=== PATIENT | male | born 1940 | race Caucasian/White ===

== ENCOUNTER 2019-01-12 10:36 | Inpatient (IN) | payer MEDICARE, MEDICAID ==
[~2019-01-12] VITALS: Ht 165.1 cm; Wt 78.5 kg
[2019-01-12] MEDS ORDERED: FUROSEMIDE 20MG/2ML VIAL IVP ONE (11:00)
[2019-01-12] MEDS ORDERED: LEVOFLOXACIN 500MG PREMIX 100 ML IV ONE (11:45)
[2019-01-12 12:20] LABS: BASOPHILS % 0.2 % (0.0-2.0); HEMATOCRIT. 34.1 % (42.0-52.0); HEMOGLOBIN. 9.8 g/dL (14.0-18.0); LYMPHOCYTES % 13.9 % (20.0-50.0); MEAN CORPUSCULAR HEMOGLOBIN 17.6 pg (28.0-32.0); MEAN CORPUSCULAR VOLUME 61.4 fL (80.0-94.0); MEAN PLATELET VOLUME 8.9 fl (7.4-10.4); MONOCYTES % 9.5 % (2.0-8.0); NEUTROPHILS % 76.4 % (40.0-76.0); PLATELET 208 x1000/uL (130-400); RED BLOOD CELL COUNT 5.55 mill/uL (4.7-6.1); RED CELL DISTRIBUTION WIDTH 25.2 % (11.6-14.6)
[2019-01-12 12:26] LABS: CHLORIDE 97 mEq/L (98-107)
[2019-01-12 13:11] LABS: PLATELET ESTIMATE NORMAL
[2019-01-12 16:00] VITALS: BP 117/71
[2019-01-12] MEDS ORDERED: GUAIFENESIN 200MG/10ML SUGAR FREE UDC PO PRN (17:00)
[2019-01-12] MEDS ORDERED: MORPHINE SULFATE 2 MG/ML CPJ (NOT FOR IM USE) IV PRN (17:00)
[2019-01-12] MEDS ORDERED: IPRATROPIUM/ALBUTEROL 0.5-3(2.5)MG/3ML NEB INH PRN (17:00)
[2019-01-12] MEDS ORDERED: DOCUSATE SODIUM 100MG CAPSULE PO PRN (17:00)
[2019-01-12] MEDS ORDERED: CLONIDINE 0.1MG TABLET PO PRN (17:00)
[2019-01-12] MEDS ORDERED: HYDROCODONE/ACETAMINOPHEN 5/325MG TABLET PO PRN (17:00)
[2019-01-12] MEDS ORDERED: ACETAMINOPHEN 325MG TABLET PO PRN (17:00)
[2019-01-12] MEDS ORDERED: ONDANSETRON HCL 4MG/2ML INJ IV PRN (17:00)
[2019-01-12] MEDS: LISINOPRIL 10MG TABLET PO SCH (17:30)
[2019-01-12] MEDS ORDERED: ENOXAPARIN 40MG/0.4ML SYR SUBCUT SCH (18:00)
[2019-01-12] MEDS ORDERED: CEFTRIAXONE 1 G PREMIX 50 ML IV SCH (18:00)
[2019-01-12] MEDS ORDERED: SODIUM POLYSTYRENE SULFONATE 15 G/60 ML BOT PO NR (19:00)
[2019-01-12] MEDS ORDERED: AZITHROMYCIN 500 MG in DEXT 5% WATER 250 ML IV SCH (19:00)
[2019-01-12 20:00] VITALS: BP 123/63
[2019-01-12] MEDS: CEFTRIAXONE 1 G PREMIX 50 ML IV SCH (21:45)
[2019-01-12] MEDS: METOPROLOL TARTRATE 25MG TABLET PO SCH (21:45)
[2019-01-12] MEDS: AZITHROMYCIN 500 MG in DEXT 5% WATER 250 ML IV SCH (22:34)
[2019-01-13] VITALS: BP 120/65
[2019-01-13 04:00] VITALS: BP 115/62
[2019-01-13 07:09] LABS: HEMATOCRIT. 33.1 % (42.0-52.0); HEMOGLOBIN. 9.3 g/dL (14.0-18.0); MEAN CORPUSCULAR HEMOGLOBIN 17.5 pg (28.0-32.0); MEAN CORPUSCULAR VOLUME 62.4 fL (80.0-94.0); RED BLOOD CELL COUNT 5.31 mill/uL (4.7-6.1); RED CELL DISTRIBUTION WIDTH 24.7 % (11.6-14.6)
[2019-01-13 07:49] LABS: CHLORIDE 98 mEq/L (98-107)
[2019-01-13 08:00] VITALS: BP 125/62
[2019-01-13 08:01] LABS: LDL CHOLESTEROL 78 mg/dL (5-100)
[2019-01-13 08:02] LABS: CREATINE KINASE 70 IU/L (39-308); HDL CHOLESTEROL 17 mg/dL (40-59)
[2019-01-13 08:05] LABS: CREATINE KINASE MB FRACTION 7.5 ng/mL (0.5-3.6)
[2019-01-13] MEDS: LISINOPRIL 10MG TABLET PO SCH (08:58)
[2019-01-13] MEDS: METOPROLOL TARTRATE 25MG TABLET PO SCH ×2 (08:58→22:01)
[2019-01-13] MEDS ORDERED: FUROSEMIDE 40MG/4ML VIAL IV SCH (09:00)
[2019-01-13 09:15] LABS: PLATELET 97 x1000/uL (130-400)
[2019-01-13 09:18] LABS: NUCLEATED RED BLOOD CELLS 6 /100 WBC; PLATELET ESTIMATE SLIGHTLY DECREASED
[2019-01-13 12:00] VITALS: BP 87/42
[2019-01-13] MEDS: LOSARTAN POTASSIUM 25 MG TABLET PO SCH (13:00)
[2019-01-13 15:36] LABS: *AMPHETAMINES SCREEN URINE NEGATIVE (NEGATIVE); *BARBITURATES SCREEN URINE NEGATIVE (NEGATIVE)
[2019-01-13 15:37] LABS: *BENZODIAZEPINES SCREEN URINE NEGATIVE (NEGATIVE); *COCAINE SCREEN URINE NEGATIVE (NEGATIVE); CANNABINOID URINE SCREEN NEGATIVE (NEGATIVE); METHADONE URINE SCREEN NEGATIVE (NEGATIVE); OPIATES URINE SCREEN NEGATIVE (NEGATIVE); PHENCYCLIDINE URINE SCREEN NEGATIVE (NEGATIVE)
[2019-01-13 16:00] VITALS: BP 88/46
[2019-01-13] MEDS: FUROSEMIDE 40MG/4ML VIAL IV SCH (18:15)
[2019-01-13 20:00] VITALS: BP 112/63
[2019-01-13] MEDS: CEFTRIAXONE 1 G PREMIX 50 ML IV SCH (20:00)
[2019-01-13] MEDS: AZITHROMYCIN 500 MG in DEXT 5% WATER 250 ML IV SCH (23:17)
[2019-01-14] VITALS: BP 113/58
[2019-01-14 04:00] VITALS: BP 116/50
[2019-01-14 07:33] LABS: CHLORIDE 95 mEq/L (98-107)
[2019-01-14 07:42] LABS: LDL CHOLESTEROL 73 mg/dL (5-100)
[2019-01-14 07:46] LABS: CREATINE KINASE MB FRACTION 4.2 ng/mL (0.5-3.6); HDL CHOLESTEROL 13 mg/dL (40-59)
[2019-01-14 07:47] LABS: BASOPHILS % 0.2 % (0.0-2.0); EOSINOPHILS % 0.3 % (0.0-5.0); HEMATOCRIT. 32.1 % (42.0-52.0); HEMOGLOBIN. 9.1 g/dL (14.0-18.0); LYMPHOCYTES % 17.2 % (20.0-50.0); MEAN CORPUSCULAR HEMOGLOBIN 17.2 pg (28.0-32.0); MEAN CORPUSCULAR VOLUME 60.6 fL (80.0-94.0); MEAN PLATELET VOLUME 9.7 fl (7.4-10.4); MONOCYTES % 11.2 % (2.0-8.0); NEUTROPHILS % 71.1 % (40.0-76.0); PLATELET 174 x1000/uL (130-400); RED BLOOD CELL COUNT 5.29 mill/uL (4.7-6.1); RED CELL DISTRIBUTION WIDTH 24.8 % (11.6-14.6)
[2019-01-14 08:00] VITALS: BP 108/63
[2019-01-14 08:01] LABS: CREATINE KINASE 43 IU/L (39-308)
[2019-01-14] MEDS: LOSARTAN POTASSIUM 25 MG TABLET PO SCH (08:56)
[2019-01-14] MEDS: METOPROLOL TARTRATE 25MG TABLET PO SCH ×2 (08:56→21:00)
[2019-01-14] MEDS: FUROSEMIDE 40MG/4ML VIAL IV SCH ×2 (11:24→17:34)
[2019-01-14 12:00] VITALS: BP 103/50
[2019-01-14 16:00] VITALS: BP 111/33
[2019-01-14] MEDS: SPIRONOLACTONE 25MG TABLET PO SCH (17:35)
[2019-01-14] MEDS: CEFEPIME 1,000 MG in DEXTROSE 5% WATER 50 ML IV SCH (17:36)
[2019-01-14] MEDS: METRONIDAZOLE 500 MG PREMIX 100 ML IV SCH (18:16)
[2019-01-14 20:00] VITALS: BP 102/56
[2019-01-14 20:11] LABS: HEPATITIS B SURFACE ANTIGEN NEGATIVE
[2019-01-14 20:41] LABS: HEPATITIS A AB IGM NEGATIVE (NEGATIVE)
[2019-01-14] MEDS ORDERED: LACTULOSE 20G/30ML UDC PO SCH (21:00)
[2019-01-14] MEDS: LACTULOSE 20G/30ML UDC PO SCH (21:59)
[2019-01-15] VITALS: BP 123/49
[2019-01-15] MEDS: METRONIDAZOLE 500 MG PREMIX 100 ML IV SCH ×4 (01:25→23:55)
[2019-01-15] MEDS: CEFEPIME 1,000 MG in DEXTROSE 5% WATER 50 ML IV SCH ×2 (03:30→14:30)
[2019-01-15 04:00] VITALS: BP 113/59
[2019-01-15] MEDS: LACTULOSE 20G/30ML UDC PO SCH ×3 (05:29→21:45)
[2019-01-15 07:10] LABS: BASOPHILS % 0.2 % (0.0-2.0); EOSINOPHILS % 0.6 % (0.0-5.0); HEMATOCRIT. 30.8 % (42.0-52.0); HEMOGLOBIN. 9.2 g/dL (14.0-18.0); LYMPHOCYTES % 14.7 % (20.0-50.0); MEAN CORPUSCULAR HEMOGLOBIN 17.8 pg (28.0-32.0); MEAN CORPUSCULAR VOLUME 59.7 fL (80.0-94.0); MEAN PLATELET VOLUME 9.6 fl (7.4-10.4); MONOCYTES % 14.1 % (2.0-8.0); NEUTROPHILS % 70.4 % (40.0-76.0); PLATELET 172 x1000/uL (130-400); RED BLOOD CELL COUNT 5.17 mill/uL (4.7-6.1); RED CELL DISTRIBUTION WIDTH 24.7 % (11.6-14.6)
[2019-01-15 07:13] LABS: CHLORIDE 93 mEq/L (98-107)
[2019-01-15 08:00] VITALS: BP 104/45
[2019-01-15] MEDS: SPIRONOLACTONE 25MG TABLET PO SCH (08:57)
[2019-01-15] MEDS: FUROSEMIDE 40MG/4ML VIAL IV SCH ×2 (08:57→17:25)
[2019-01-15] MEDS: METOPROLOL TARTRATE 25MG TABLET PO SCH ×2 (08:58→21:46)
[2019-01-15] MEDS: LOSARTAN POTASSIUM 25 MG TABLET PO SCH (08:58)
[2019-01-15 12:00] VITALS: BP 116/50
[2019-01-15] MEDS ORDERED: VANCOMYCIN 1250MG in DEXTROSE 5% WATER 250ML IV SCH (12:00)
[2019-01-15 13:01] LABS: BG BASE EXCESS 17.3 mmol/L (-2.0-2.0); BG CARBOXYHEMOGLOBIN 0.7 % (0.5-1.5); BG DEOXYHEMOGLOBIN 23.1 % (0.0-5.0); BG FRACTION INSPIRED OXYGEN 21; BG HCO3 ACT 43.9 mmol/L (22.0-26.0); BG METHEMOGLOBIN 0.3 % (0.0-1.5); BG OXYGEN SATURATION 76.7 % (92.0-98.5); BG OXYHEMOGLOBIN 75.9 % (94.0-97.0); BG PH 7.441 (7.350-7.450); BG PO2 44.4 mmHg (75.0-100.0); BG SAMPLE SITE RIGHT RADIAL; BG TOTAL HEMOGLOBIN 9.6 g/dL (12.0-18.0); BG VENT MODE ROOM AIR
[2019-01-15 16:00] VITALS: BP 151/42
[2019-01-15 20:00] VITALS: BP 128/66
[2019-01-16] VITALS: BP 109/59
[2019-01-16] MEDS: CEFEPIME 1,000 MG in DEXTROSE 5% WATER 50 ML IV SCH ×2 (03:43→17:16)
[2019-01-16 04:00] VITALS: BP 98/55
[2019-01-16] MEDS: LACTULOSE 20G/30ML UDC PO SCH ×3 (05:56→21:08)
[2019-01-16 07:40] LABS: BASOPHILS % 0.2 % (0.0-2.0); EOSINOPHILS % 2.8 % (0.0-5.0); HEMATOCRIT. 28.8 % (42.0-52.0); HEMOGLOBIN. 8.5 g/dL (14.0-18.0); LYMPHOCYTES % 14.5 % (20.0-50.0); MEAN CORPUSCULAR HEMOGLOBIN 17.5 pg (28.0-32.0); MEAN CORPUSCULAR VOLUME 59.4 fL (80.0-94.0); MEAN PLATELET VOLUME 8.6 fl (7.4-10.4); MONOCYTES % 13.9 % (2.0-8.0); NEUTROPHILS % 68.6 % (40.0-76.0); PLATELET 128 x1000/uL (130-400); RED BLOOD CELL COUNT 4.86 mill/uL (4.7-6.1); RED CELL DISTRIBUTION WIDTH 24.5 % (11.6-14.6)
[2019-01-16 07:45] LABS: CHLORIDE 92 mEq/L (98-107)
[2019-01-16] MEDS: METRONIDAZOLE 500 MG PREMIX 100 ML IV SCH ×2 (08:05→18:26)
[2019-01-16 08:11] VITALS: BP 98/56
[2019-01-16] MEDS: METOPROLOL TARTRATE 25MG TABLET PO SCH (08:56)
[2019-01-16] MEDS: LOSARTAN POTASSIUM 25 MG TABLET PO SCH (08:56)
[2019-01-16] MEDS: SPIRONOLACTONE 25MG TABLET PO SCH (08:57)
[2019-01-16] MEDS: FUROSEMIDE 40MG/4ML VIAL IV SCH ×2 (08:57→17:16)
[2019-01-16 12:16] VITALS: BP 122/62
[2019-01-16] MEDS: IPRATROPIUM/ALBUTEROL 0.5-3(2.5)MG/3ML NEB HHN SCH ×2 (12:23→16:22)
[2019-01-16] MEDS ORDERED: POTASSIUM CHLORIDE 20MEQ TABLET SR PO NR (13:45)
[2019-01-16] MEDS: CARVEDILOL 3.125 MG TABLET PO SCH ×2 (14:36→21:09)
[2019-01-16 15:18] LABS: BG BASE EXCESS 19.6 mmol/L (-2.0-2.0); BG CARBOXYHEMOGLOBIN 1.6 % (0.5-1.5); BG DEOXYHEMOGLOBIN 5.6 % (0.0-5.0); BG FRACTION INSPIRED OXYGEN 32; BG HCO3 ACT 46.7 mmol/L (22.0-26.0); BG METHEMOGLOBIN 0.4 % (0.0-1.5); BG OXYGEN SATURATION 94.3 % (92.0-98.5); BG OXYHEMOGLOBIN 92.4 % (94.0-97.0); BG PCO2 72.1 mmHg (35.0-45.0); BG PH 7.429 (7.350-7.450); BG PO2 73.1 mmHg (75.0-100.0); BG SAMPLE SITE LEFT BRACHIAL; BG TOTAL HEMOGLOBIN 9.2 g/dL (12.0-18.0); BG VENT MODE NASAL CANNULA
[2019-01-16 16:00] VITALS: BP 121/70
[2019-01-16 20:00] VITALS: BP 105/60
[2019-01-17] VITALS (49 sets, daily range): BP systolic 65–131; BP diastolic 24–91
[2019-01-17] MEDS: METRONIDAZOLE 500 MG PREMIX 100 ML IV SCH ×3 (00:15→16:47)
[2019-01-17] MEDS: CEFEPIME 1,000 MG in DEXTROSE 5% WATER 50 ML IV SCH ×2 (03:53→16:40)
[2019-01-17] MEDS: IPRATROPIUM/ALBUTEROL 0.5-3(2.5)MG/3ML NEB HHN SCH ×5 (04:26→20:12)
[2019-01-17] MEDS: LACTULOSE 20G/30ML UDC PO SCH ×3 (05:23→22:19)
[2019-01-17 06:31] LABS: CHLORIDE 95 mEq/L (98-107)
[2019-01-17 06:34] LABS: BASOPHILS % 0.2 % (0.0-2.0); EOSINOPHILS % 5.3 % (0.0-5.0); HEMATOCRIT. 28.7 % (42.0-52.0); HEMOGLOBIN. 8.4 g/dL (14.0-18.0); LYMPHOCYTES % 12.4 % (20.0-50.0); MEAN CORPUSCULAR HEMOGLOBIN 17.6 pg (28.0-32.0); MEAN CORPUSCULAR VOLUME 60.4 fL (80.0-94.0); MEAN PLATELET VOLUME 8.8 fl (7.4-10.4); NEUTROPHILS % 70.1 % (40.0-76.0); PLATELET 121 x1000/uL (130-400); RED BLOOD CELL COUNT 4.75 mill/uL (4.7-6.1); RED CELL DISTRIBUTION WIDTH 24.8 % (11.6-14.6)
[2019-01-17] MEDS: FUROSEMIDE 40MG/4ML VIAL IV SCH ×2 (08:14→16:47)
[2019-01-17] MEDS: LOSARTAN POTASSIUM 25 MG TABLET PO SCH (08:15)
[2019-01-17 08:36] LABS: BG BASE EXCESS 9.7 mmol/L (-2.0-2.0); BG CARBOXYHEMOGLOBIN 0.3 % (0.5-1.5); BG DEOXYHEMOGLOBIN 0.8 % (0.0-5.0); BG FRACTION INSPIRED OXYGEN 100; BG HCO3 ACT 36.4 mmol/L (22.0-26.0); BG METHEMOGLOBIN 0.9 % (0.0-1.5); BG OXYGEN SATURATION 99.2 % (92.0-98.5); BG PCO2 62.3 mmHg (35.0-45.0); BG PH 7.384 (7.350-7.450); BG PO2 311.9 mmHg (75.0-100.0); BG SAMPLE SITE LEFT BRACHIAL; BG TOTAL HEMOGLOBIN 9.8 g/dL (12.0-18.0); BG VENT MODE MASK - NRB
[2019-01-17] MEDS: SPIRONOLACTONE 25MG TABLET PO SCH (08:58)
[2019-01-17] MEDS: CARVEDILOL 3.125 MG TABLET PO SCH ×2 (08:58→20:41)
[2019-01-17] MEDS ORDERED: LORAZEPAM 2MG/ML CPJ IV PRN (10:15)
[2019-01-17] MEDS: FOLIC ACID 1MG TABLET PO SCH (11:16)
[2019-01-17] MEDS: MULTIVITAMINS,THER W-MINERALS TABLET PO SCH (11:16)
[2019-01-17] MEDS: THIAMINE HCL 100MG TABLET PO SCH (11:16)
[2019-01-17] MEDS ORDERED: LEVETIRACETAM 500 MG in SODIUM CHLORIDE 0.9% 100 ML IV SCH (19:00)
[2019-01-18] VITALS (62 sets, daily range): BP systolic 86–127; BP diastolic 48–74
[2019-01-18] MEDS: IPRATROPIUM/ALBUTEROL 0.5-3(2.5)MG/3ML NEB HHN SCH ×6 (00:30→22:00)
[2019-01-18] MEDS: METRONIDAZOLE 500 MG PREMIX 100 ML IV SCH ×3 (01:41→18:01)
[2019-01-18] MEDS: CEFEPIME 1,000 MG in DEXTROSE 5% WATER 50 ML IV SCH ×2 (03:37→15:21)
[2019-01-18 04:33] LABS: BASOPHILS % 0.3 % (0.0-2.0); EOSINOPHILS % 2.5 % (0.0-5.0); HEMATOCRIT. 27.8 % (42.0-52.0); HEMOGLOBIN. 8.1 g/dL (14.0-18.0); LYMPHOCYTES % 10.5 % (20.0-50.0); MEAN CORPUSCULAR HEMOGLOBIN 17.6 pg (28.0-32.0); MEAN CORPUSCULAR VOLUME 60.2 fL (80.0-94.0); MONOCYTES % 10.4 % (2.0-8.0); NEUTROPHILS % 76.3 % (40.0-76.0); RED BLOOD CELL COUNT 4.61 mill/uL (4.7-6.1); RED CELL DISTRIBUTION WIDTH 25.1 % (11.6-14.6)
[2019-01-18 04:38] LABS: CHLORIDE 91 mEq/L (98-107)
[2019-01-18] MEDS: LACTULOSE 20G/30ML UDC PO SCH ×3 (05:37→21:11)
[2019-01-18] MEDS: LEVETIRACETAM 500 MG in SODIUM CHLORIDE 0.9% 100 ML IV SCH ×2 (08:28→21:10)
[2019-01-18] MEDS: LOSARTAN POTASSIUM 25 MG TABLET PO SCH (09:00)
[2019-01-18] MEDS: CARVEDILOL 3.125 MG TABLET PO SCH ×2 (09:00→21:00)
[2019-01-18] MEDS ORDERED: MAGNESIUM 1 G PREMIX 100 ML IV ONE (09:00)
[2019-01-18] MEDS: MULTIVITAMINS,THER W-MINERALS TABLET PO SCH (09:47)
[2019-01-18] MEDS: SPIRONOLACTONE 25MG TABLET PO SCH (09:47)
[2019-01-18] MEDS: THIAMINE HCL 100MG TABLET PO SCH (09:48)
[2019-01-18] MEDS: FOLIC ACID 1MG TABLET PO SCH (09:48)
[2019-01-18] MEDS: FUROSEMIDE 40MG/4ML VIAL IV SCH ×2 (09:49→18:13)
[2019-01-18 13:49] LABS: PLATELET 109 x1000/uL (130-400)
[2019-01-19] VITALS: BP 99/47
[2019-01-19] MEDS: CEFEPIME 1,000 MG in DEXTROSE 5% WATER 50 ML IV SCH (03:30)
[2019-01-19] MEDS: LACTULOSE 20G/30ML UDC PO SCH (06:27)
[2019-01-19] MEDS: METRONIDAZOLE 500 MG PREMIX 100 ML IV SCH ×2 (08:00)
[2019-01-19 08:10] VITALS: BP 106/60
[2019-01-19] MEDS: IPRATROPIUM/ALBUTEROL 0.5-3(2.5)MG/3ML NEB HHN SCH (08:30)
[2019-01-19] MEDS: LEVETIRACETAM 500 MG in SODIUM CHLORIDE 0.9% 100 ML IV SCH (09:00)
[2019-01-19] MEDS: MULTIVITAMINS,THER W-MINERALS TABLET PO SCH (09:00)
[2019-01-19] MEDS: SPIRONOLACTONE 25MG TABLET PO SCH (09:00)
[2019-01-19] MEDS: FOLIC ACID 1MG TABLET PO SCH (09:00)
[2019-01-19] MEDS: THIAMINE HCL 100MG TABLET PO SCH (09:00)
[2019-01-19] MEDS: FUROSEMIDE 40MG/4ML VIAL IV SCH (09:00)
[2019-01-19] MEDS: LOSARTAN POTASSIUM 25 MG TABLET PO SCH (09:00)
[2019-01-19] MEDS: CARVEDILOL 3.125 MG TABLET PO SCH (09:00)
[2019-01-19 11:39] VITALS: BP 115/65
[2019-01-19 11:49] VITALS: BP 115/65
== END 2019-01-19 13:18 | disposition home health service (06) | DRG 720 ==
LOC: ER 10:39 → 5WST 12:52 → EDBEDREQ 12:55 → EDBEDREQTM 12:55 → ENRESERV 14:54 → MICUNO 01-17 08:34 → 5WST 01-18 17:09
PROVIDERS: ADMIT Hospitalist; ATTEND Hospitalist
PROC: 5A09357 Assistance with Respiratory Ventilation, Less than 24 Consecutive Hours, Continuous Positive Airway Pressure (ICD-10-PCS; principal; 2019-01-15)
PROC: 5A09357 Assistance with Respiratory Ventilation, Less than 24 Consecutive Hours, Continuous Positive Airway Pressure (ICD-10-PCS; 2019-01-16)
PROC: 5A09357 Assistance with Respiratory Ventilation, Less than 24 Consecutive Hours, Continuous Positive Airway Pressure (ICD-10-PCS; 2019-01-17)
DX: A41.9 Sepsis, unspecified organism (principal); J69.0 Pneumonitis due to inhalation of food and vomit; J96.02 Acute respiratory failure with hypercapnia; E43 Unspecified severe protein-calorie malnutrition; I50.43 Acute on chronic combined systolic (congestive) and diastolic (congestive) heart failure; N17.9 Acute kidney failure, unspecified; D69.6 Thrombocytopenia, unspecified; E11.22 Type 2 diabetes mellitus with diabetic chronic kidney disease; K72.90 Hepatic failure, unspecified without coma; E87.5 Hyperkalemia; E87.1 Hypo-osmolality and hyponatremia; D64.9 Anemia, unspecified; R74.0 Nonspecific elevation of levels of transaminase and lactic acid dehydrogenase [LDH]; L97.919 Non-pressure chronic ulcer of unspecified part of right lower leg with unspecified severity; R26.9 Unspecified abnormalities of gait and mobility; E66.9 Obesity, unspecified; K74.60 Unspecified cirrhosis of liver; I13.0 Hypertensive heart and chronic kidney disease with heart failure and stage 1 through stage 4 chronic kidney disease, or unspecified chronic kidney disease; N18.9 Chronic kidney disease, unspecified; I42.6 Alcoholic cardiomyopathy; G93.89 Other specified disorders of brain; I25.10 Atherosclerotic heart disease of native coronary artery without angina pectoris; I27.29 Other secondary pulmonary hypertension; I87.2 Venous insufficiency (chronic) (peripheral); R56.9 Unspecified convulsions; E80.6 Other disorders of bilirubin metabolism; Z78.1 Physical restraint status; Z68.28 Body mass index [BMI] 28.0-28.9, adult
CPT/HCPCS: 36415; 36600; 70551; 71045; 71250; 74176; 80061; 80305; 82140; 82375; 82550; 82553; 82693; 82805; 82962; 83735; 83880; 84132; 84484; 85379; 86705; 86709; 86803; 87340; 92610; 93005; 93306; 93970; 94640; 94660; 97116; 97162; 97166; 97168; 97530; 97535; 99285; A6261; C1893; J0456; J0692; J0696; J1650; J1940; J1953; J1956; J2060; J3370; J3475; J3490; J7040; J7050; J7060; J7620; A4315

== ENCOUNTER 2019-01-25 00:15 | Inpatient (IN) | payer MEDICARE, MEDICAID ==
[~2019-01-25] VITALS: Ht 167.6 cm; Wt 88.6 kg
[2019-01-25] MEDS ORDERED: SODIUM CHLORIDE 0.9% 1,000 ML IV ONE (00:53)
[2019-01-25 01:38] LABS: HEMATOCRIT. 27.5 % (42.0-52.0); HEMOGLOBIN. 8.1 g/dL (14.0-18.0); MEAN CORPUSCULAR HEMOGLOBIN 17.8 pg (28.0-32.0); MEAN CORPUSCULAR VOLUME 60.3 fL (80.0-94.0); MEAN PLATELET VOLUME 8.8 fl (7.4-10.4); PLATELET 160 x1000/uL (130-400); RED BLOOD CELL COUNT 4.55 mill/uL (4.7-6.1); RED CELL DISTRIBUTION WIDTH 26.5 % (11.6-14.6)
[2019-01-25 01:45] LABS: CHLORIDE 90 mEq/L (98-107)
[2019-01-25] MEDS ORDERED: ASPIRIN 325MG EC TABLET PO NR (02:30)
[2019-01-25 03:27] LABS: PLATELET ESTIMATE NORMAL
[2019-01-25 08:40] VITALS: BP 99/52
[2019-01-25] MEDS ORDERED: ACETAMINOPHEN 325MG TABLET PO PRN (09:15)
[2019-01-25] MEDS ORDERED: DIPHENHYDRAMINE 50MG/ML VIAL IV PRN (09:15)
[2019-01-25] MEDS ORDERED: HYDROCODONE/ACETAMINOPHEN 5/325MG TABLET PO PRN (09:15)
[2019-01-25] MEDS ORDERED: CLONIDINE 0.1MG TABLET PO PRN (09:15)
[2019-01-25] MEDS ORDERED: MAGNESIUM/ALUMINUM HYDROXIDE/SIMETHICONE 30ML UDC PO PRN (09:15)
[2019-01-25] MEDS ORDERED: IPRATROPIUM/ALBUTEROL 0.5-3(2.5)MG/3ML NEB INH PRN (09:15)
[2019-01-25] MEDS ORDERED: ONDANSETRON HCL 4MG/2ML INJ IV PRN (09:15)
[2019-01-25] MEDS ORDERED: ENOXAPARIN 40MG/0.4ML SYR SUBCUT SCH (09:15)
[2019-01-25] MEDS ORDERED: DOCUSATE SODIUM 100MG CAPSULE PO PRN (09:15)
[2019-01-25] MEDS ORDERED: GUAIFENESIN 200MG/10ML SUGAR FREE UDC PO PRN (09:15)
[2019-01-25] MEDS ORDERED: ENOXAPARIN 30MG/0.3ML SYR SUBCUT SCH (10:00)
[2019-01-25 10:03] VITALS: BP 99/52
[2019-01-25 12:00] VITALS: BP 106/57
[2019-01-25] MEDS ORDERED: LACT10SO30 MT (14:26)
[2019-01-25] MEDS ORDERED: CARV3.1242 MT (14:27)
[2019-01-25] MEDS ORDERED: LOSA25TA26 PO (14:27)
[2019-01-25] MEDS ORDERED: LEVE500T98 PO (14:28)
[2019-01-25] MEDS ORDERED: FURO40TA5 PO (14:31)
[2019-01-25] MEDS ORDERED: SPIR25TA6 PO (14:32)
[2019-01-25 16:00] VITALS: BP 93/61
[2019-01-25] MEDS: FUROSEMIDE 40MG/4ML VIAL IVP SCH (17:00)
[2019-01-25 18:25] LABS: PHOSPHORUS 3.5 mg/dL (2.5-4.9)
[2019-01-25 18:31] LABS: CREATINE KINASE MB FRACTION 1.6 ng/mL (0.5-3.6)
[2019-01-25 20:00] VITALS: BP 101/52
[2019-01-25] MEDS: CARVEDILOL 3.125 MG TABLET PO SCH (21:00)
[2019-01-26] VITALS: BP 106/60
[2019-01-26 01:59] LABS: CREATINE KINASE MB FRACTION 1.6 ng/mL (0.5-3.6)
[2019-01-26 04:00] VITALS: BP 136/66
[2019-01-26 08:00] VITALS: BP 104/69
[2019-01-26 08:13] LABS: CLARITY URINE CLEAR (CLEAR); COLOR URINE YELLOW (YELLOW); KETONES URINE NEGATIVE (NEGATIVE); LEUKOCYTE ESTERASE URINE NEGATIVE (NEGATIVE); NITRITE URINE NEGATIVE (NEGATIVE); OCCULT BLOOD URINE NEGATIVE (NEGATIVE); PROTEIN URINE NEGATIVE (NEGATIVE); SPECIFIC GRAVITY URINE 1.007 (1.005-1.030); UROBILINOGEN URINE 0.2 E.U./dL (0.2-1.0)
[2019-01-26] MEDS ORDERED: ASPIRIN 81MG EC TABLET PO SCH (09:00)
[2019-01-26 09:20] LABS: BASOPHILS % 0.3 % (0.0-2.0); EOSINOPHILS % 1.2 % (0.0-5.0); HEMATOCRIT. 28.4 % (42.0-52.0); HEMOGLOBIN. 8.3 g/dL (14.0-18.0); LYMPHOCYTES % 66.5 % (20.0-50.0); MEAN CORPUSCULAR HEMOGLOBIN 17.9 pg (28.0-32.0); MEAN CORPUSCULAR VOLUME 61.2 fL (80.0-94.0); MEAN PLATELET VOLUME 9.7 fl (7.4-10.4); MONOCYTES % 7.8 % (2.0-8.0); NEUTROPHILS % 24.2 % (40.0-76.0); PLATELET 160 x1000/uL (130-400); RED BLOOD CELL COUNT 4.65 mill/uL (4.7-6.1); RED CELL DISTRIBUTION WIDTH 27.2 % (11.6-14.6)
[2019-01-26 09:35] LABS: CHLORIDE 94 mEq/L (98-107)
[2019-01-26 09:46] LABS: LDL CHOLESTEROL 80 mg/dL (5-100); PHOSPHORUS 3.9 mg/dL (2.5-4.9)
[2019-01-26 09:47] LABS: HDL CHOLESTEROL 32 mg/dL (40-59)
[2019-01-26] MEDS: CARVEDILOL 3.125 MG TABLET PO SCH (09:52)
[2019-01-26] MEDS: FUROSEMIDE 40MG/4ML VIAL IVP SCH (09:52)
[2019-01-26 12:00] VITALS: BP 96/53
[2019-01-26 15:00] VITALS: BP 18/109
[2019-01-26] MEDS ORDERED: ENOXAPARIN 40MG/0.4ML SYR SUBCUT SCH (15:00)
[2019-01-26 16:00] VITALS: BP 109/58
[2019-01-26] MEDS ORDERED: FERROUS SULFATE 325MG TABLET PO SCH (17:50)
[2019-01-26] MEDS ORDERED: POLYETHYLENE GLYCOL 3350 (17GM) 1 DOSE PACK PO SCH (21:00)
[2019-01-26] MEDS ORDERED: LEVETIRACETAM 500MG TABLET PO SCH (21:00)
[2019-01-27] MEDS ORDERED: ENOXAPARIN 40MG/0.4ML SYR SUBCUT SCH (09:00)
== END 2019-01-26 17:39 | disposition home or self-care (01) | DRG 469 ==
LOC: ER 00:15 → 6WST 03:04 → EDBEDREQTM 03:07 → EDBEDREQ 03:07 → ENRESERV 06:42
PROVIDERS: ADMIT Internal Medicine; ATTEND Internal Medicine
DX: N17.9 Acute kidney failure, unspecified (principal); I95.9 Hypotension, unspecified; E87.2 Acidosis; J90 Pleural effusion, not elsewhere classified; I13.0 Hypertensive heart and chronic kidney disease with heart failure and stage 1 through stage 4 chronic kidney disease, or unspecified chronic kidney disease; I27.29 Other secondary pulmonary hypertension; E87.1 Hypo-osmolality and hyponatremia; I42.0 Dilated cardiomyopathy; I50.810 Right heart failure, unspecified; D64.9 Anemia, unspecified; F03.90 Unspecified dementia, unspecified severity, without behavioral disturbance, psychotic disturbance, mood disturbance, and anxiety; G40.909 Epilepsy, unspecified, not intractable, without status epilepticus; D72.821 Monocytosis (symptomatic); E78.00 Pure hypercholesterolemia, unspecified; E78.5 Hyperlipidemia, unspecified; N18.9 Chronic kidney disease, unspecified; K59.00 Constipation, unspecified; K74.60 Unspecified cirrhosis of liver; R62.7 Adult failure to thrive; Z79.899 Other long term (current) drug therapy; Z68.31 Body mass index [BMI] 31.0-31.9, adult
CPT/HCPCS: 36415; 71045; 76770; 80061; 82043; 82248; 82550; 82553; 82570; 82728; 82962; 83540; 83550; 83605; 83735; 83880; 84100; 84300; 84443; 84484; 93005; 93970; C1893; J1650; J1940; J7030

== ENCOUNTER 2019-02-27 15:51 | Inpatient (IN) | payer MEDICARE, MEDICAID ==
[~2019-02-27] VITALS: Ht 167.6 cm; Wt 74.4 kg
[~2019-02-27 15:51] MED LIST: CARV3.1242 MT; FURO40TA5 PO; LACT10SO30 MT; LEVE500T98 PO; SPIR25TA6 PO
[2019-02-27] MEDS ORDERED: SODIUM CHLORIDE 0.9% 1,000 ML IV ONE (16:32)
[2019-02-27] MEDS ORDERED: LORAZEPAM 2MG/ML CPJ IV ONE (16:45)
[2019-02-27 17:25] LABS: HEMOGLOBIN. 8.5 g/dL (14.0-18.0); MEAN CORPUSCULAR HEMOGLOBIN 19.6 pg (28.0-32.0); MEAN CORPUSCULAR VOLUME 66.9 fL (80.0-94.0); MEAN PLATELET VOLUME 8.7 fl (7.4-10.4); PLATELET 258 x1000/uL (130-400); RED BLOOD CELL COUNT 4.34 mill/uL (4.7-6.1); RED CELL DISTRIBUTION WIDTH 28.1 % (11.6-14.6)
[2019-02-27 17:26] LABS: CHLORIDE 98 mEq/L (98-107); INR 1.4
[2019-02-27 17:30] LABS: ETHANOL BLOOD < 10 mg/dL
[2019-02-27] MEDS ORDERED: LEVETIRACETAM 500MG PREMIX 100 ML IV ONE (17:30)
[2019-02-27 17:34] LABS: CREATINE KINASE 53 IU/L (39-308)
[2019-02-27 17:43] LABS: CARBAMAZEPINE < 0.5 ug/mL (4-12); PHENOBARBITAL < 2.1 ug/mL (15.0-40.0); PLATELET ESTIMATE NORMAL; VALPROIC ACID < 3.0 ug/mL (50-100)
[2019-02-27] MEDS ORDERED: LACTULOSE 20G/30ML UDC PO ONE (17:45)
[2019-02-27] MEDS ORDERED: PIPERACILLIN/TAZ 3.375G PREMIX 50 ML IV ONE (17:45)
[2019-02-27] MEDS ORDERED: DOCUSATE SODIUM 100MG CAPSULE PO PRN (18:30)
[2019-02-27] MEDS ORDERED: IPRATROPIUM/ALBUTEROL 0.5-3(2.5)MG/3ML NEB INH PRN (18:30)
[2019-02-27] MEDS ORDERED: GUAIFENESIN 200MG/10ML SUGAR FREE UDC PO PRN (18:30)
[2019-02-27] MEDS ORDERED: CLONIDINE 0.1MG TABLET PO PRN (18:30)
[2019-02-27] MEDS ORDERED: ACETAMINOPHEN 325MG TABLET PO PRN (18:30)
[2019-02-27] MEDS ORDERED: ONDANSETRON HCL 4MG/2ML INJ IV PRN (18:30)
[2019-02-27] MEDS ORDERED: MAGNESIUM/ALUMINUM HYDROXIDE/SIMETHICONE 30ML UDC PO PRN (18:30)
[2019-02-27 18:54] LABS: PHOSPHORUS 7.3 mg/dL (2.5-4.9)
[2019-02-27 19:52] LABS: CLARITY URINE CLOUDY (CLEAR); COLOR URINE DARK YELLOW (YELLOW); KETONES URINE NEGATIVE (NEGATIVE); LEUKOCYTE ESTERASE URINE NEGATIVE (NEGATIVE); NITRITE URINE NEGATIVE (NEGATIVE); OCCULT BLOOD URINE NEGATIVE (NEGATIVE); PROTEIN URINE 1+ (NEGATIVE); SPECIFIC GRAVITY URINE 1.016 (1.005-1.030)
[2019-02-27 20:05] LABS: *AMPHETAMINES SCREEN URINE NEGATIVE (NEGATIVE); *BARBITURATES SCREEN URINE NEGATIVE (NEGATIVE); *BENZODIAZEPINES SCREEN URINE NEGATIVE (NEGATIVE); *COCAINE SCREEN URINE NEGATIVE (NEGATIVE); METHADONE URINE SCREEN NEGATIVE (NEGATIVE); OPIATES URINE SCREEN NEGATIVE (NEGATIVE)
[2019-02-27 20:06] LABS: CANNABINOID URINE SCREEN NEGATIVE (NEGATIVE); PHENCYCLIDINE URINE SCREEN NEGATIVE (NEGATIVE)
[2019-02-27 23:00] VITALS: BP 101/65
[2019-02-27] MEDS: SODIUM CHLORIDE 0.9% 1,000 ML IV SCH (23:48)
[2019-02-28] VITALS (33 sets, daily range): BP systolic 1–139; BP diastolic 38–90
[2019-02-28] MEDS ORDERED: CEFTRIAXONE 1 G PREMIX 50 ML IV SCH
[2019-02-28] MEDS ORDERED: DEXTROSE 50% WATER 50ML SYRINGE IV PRN ×3 (01:00→07:15)
[2019-02-28] MEDS: SODIUM CHLORIDE 0.9% 1,000 ML IV SCH (06:32)
[2019-02-28] MEDS ORDERED: BLOOD SUGAR DIAGNOSTIC STRIP TEST SCH (07:30)
[2019-02-28 07:40] LABS: HEMATOCRIT. 31.4 % (42.0-52.0); HEMOGLOBIN. 8.8 g/dL (14.0-18.0); MEAN CORPUSCULAR HEMOGLOBIN 19.2 pg (28.0-32.0); MEAN CORPUSCULAR VOLUME 68.6 fL (80.0-94.0); MEAN PLATELET VOLUME 8.9 fl (7.4-10.4); PLATELET 227 x1000/uL (130-400); RED BLOOD CELL COUNT 4.58 mill/uL (4.7-6.1); RED CELL DISTRIBUTION WIDTH 28.8 % (11.6-14.6)
[2019-02-28] MEDS: BLOOD SUGAR DIAGNOSTIC STRIP TEST SCH ×4 (07:52→21:00)
[2019-02-28] MEDS ORDERED: INSULIN LISPRO 100 UNITS/ML SUBCUT SCH (08:00)
[2019-02-28 08:36] LABS: CHLORIDE 97 mEq/L (98-107)
[2019-02-28] MEDS ORDERED: LORAZEPAM 2MG/ML CPJ IV PRN (08:45)
[2019-02-28 08:47] LABS: LDL CHOLESTEROL 91 mg/dL (5-100)
[2019-02-28 08:50] LABS: HDL CHOLESTEROL 33 mg/dL (40-59)
[2019-02-28 08:58] LABS: CREATINE KINASE MB FRACTION 3.5 ng/mL (0.5-3.6)
[2019-02-28 11:16] LABS: BG BASE EXCESS 5.9 mmol/L (-2.0-2.0); BG CARBOXYHEMOGLOBIN 0.8 % (0.5-1.5); BG DEOXYHEMOGLOBIN 38.9 % (0.0-5.0); BG FRACTION INSPIRED OXYGEN 21; BG HCO3 ACT 36.3 mmol/L (22.0-26.0); BG METHEMOGLOBIN 0.2 % (0.0-1.5); BG OXYGEN SATURATION 60.7 % (92.0-98.5); BG OXYHEMOGLOBIN 60.1 % (94.0-97.0); BG PCO2 96.9 mmHg (35.0-45.0); BG PH 7.191 (7.350-7.450); BG PO2 36.5 mmHg (75.0-100.0); BG SAMPLE SITE RIGHT RADIAL; BG VENT MODE ROOM AIR
[2019-02-28] MEDS: LEVETIRACETAM 500 MG in SODIUM CHLORIDE 0.9% 100 ML IV SCH ×2 (11:50→22:11)
[2019-02-28] MEDS: ENOXAPARIN 30MG/0.3ML SYR SUBCUT SCH (13:19)
[2019-02-28 13:51] LABS: NUCLEATED RED BLOOD CELLS 2 /100 WBC; PLATELET ESTIMATE NORMAL
[2019-02-28] MEDS ORDERED: NOREPINEPHRINE 8 MG in DEXT 5% WATER 242 ML IV PRN (14:30)
[2019-02-28] MEDS ORDERED: IPRATROPIUM/ALBUTEROL 0.5-3(2.5)MG/3ML NEB HHN PRN (14:30)
[2019-02-28] MEDS: PROPOFOL 10MG/ML 100ML 100 ML IV PRN (15:05)
[2019-02-28 15:55] LABS: BG BASE EXCESS 3.4 mmol/L (-2.0-2.0); BG CARBOXYHEMOGLOBIN 1.2 % (0.5-1.5); BG DEOXYHEMOGLOBIN 5.9 % (0.0-5.0); BG FRACTION INSPIRED OXYGEN 50; BG HCO3 ACT 28.7 mmol/L (22.0-26.0); BG METHEMOGLOBIN 0.4 % (0.0-1.5); BG OXYHEMOGLOBIN 92.5 % (94.0-97.0); BG PCO2 47.1 mmHg (35.0-45.0); BG PH 7.402 (7.350-7.450); BG PO2 68.4 mmHg (75.0-100.0); BG SAMPLE SITE RIGHT RADIAL; BG TIDAL VOLUME(mL) 500 mL; BG TOTAL HEMOGLOBIN 9.7 g/dL (12.0-18.0); BG VENT MODE VENT - A/C; BG VENT RATE 18 set
[2019-02-28] MEDS: IPRATROPIUM/ALBUTEROL 0.5-3(2.5)MG/3ML NEB HHN SCH ×2 (16:06→20:28)
[2019-02-28] MEDS ORDERED: VANCOMYCIN 1250MG in DEXTROSE 5% WATER 250ML IV SCH (16:30)
[2019-02-28] MEDS: INSULIN LISPRO 100 UNITS/ML SUBCUT SCH ×2 (18:16→21:00)
[2019-02-28] MEDS: PIPERACILLIN/TAZOBACTAM 2.25 G in DEXTROSE 5% WATER 50 ML IV SCH ×2 (18:32→22:11)
[2019-02-28] MEDS: LACTULOSE 20G/30ML UDC PO SCH (22:11)
[2019-03-01] VITALS (51 sets, daily range): BP systolic 84–111; BP diastolic 43–63
[2019-03-01] MEDS: IPRATROPIUM/ALBUTEROL 0.5-3(2.5)MG/3ML NEB HHN SCH ×6 (00:21→20:07)
[2019-03-01] MEDS: SODIUM CHLORIDE 0.9% 1,000 ML IV SCH (02:12)
[2019-03-01] MEDS: PIPERACILLIN/TAZOBACTAM 2.25 G in DEXTROSE 5% WATER 50 ML IV SCH ×4 (03:21→22:03)
[2019-03-01] MEDS: PROPOFOL 10MG/ML 100ML 100 ML IV PRN ×2 (03:36→13:43)
[2019-03-01] MEDS: DEXT 5%/0.9% NACL 1,000 ML IV SCH (04:57)
[2019-03-01] MEDS: LACTULOSE 20G/30ML UDC PO SCH ×3 (05:39→22:04)
[2019-03-01 07:00] LABS: INR 1.6; PROTHROMBIN TIME 16.5 sec (9.6-11.0)
[2019-03-01 07:02] LABS: HEMATOCRIT. 24.6 % (42.0-52.0); HEMOGLOBIN. 7.4 g/dL (14.0-18.0); MEAN CORPUSCULAR HEMOGLOBIN 19.3 pg (28.0-32.0); MEAN CORPUSCULAR VOLUME 64.1 fL (80.0-94.0); MEAN PLATELET VOLUME 8.8 fl (7.4-10.4); PLATELET 176 x1000/uL (130-400); RED BLOOD CELL COUNT 3.84 mill/uL (4.7-6.1); RED CELL DISTRIBUTION WIDTH 27.6 % (11.6-14.6)
[2019-03-01] MEDS: BLOOD SUGAR DIAGNOSTIC STRIP TEST SCH ×3 (07:50→18:55)
[2019-03-01 08:18] LABS: BG CARBOXYHEMOGLOBIN 1.3 % (0.5-1.5); BG DEOXYHEMOGLOBIN 4.3 % (0.0-5.0); BG FRACTION INSPIRED OXYGEN 50; BG HCO3 ACT 33.6 mmol/L (22.0-26.0); BG METHEMOGLOBIN 0.3 % (0.0-1.5); BG OXYGEN SATURATION 95.6 % (92.0-98.5); BG OXYHEMOGLOBIN 94.1 % (94.0-97.0); BG PCO2 35.7 mmHg (35.0-45.0); BG PH 7.591 (7.350-7.450); BG PO2 76.5 mmHg (75.0-100.0); BG SAMPLE SITE RIGHT RADIAL; BG TIDAL VOLUME(mL) 500 mL; BG TOTAL HEMOGLOBIN 7.6 g/dL (12.0-18.0); BG VENT MODE VENT - A/C; BG VENT RATE 18 set
[2019-03-01] MEDS: INSULIN LISPRO 100 UNITS/ML SUBCUT SCH ×3 (08:20→18:00)
[2019-03-01] MEDS: ENOXAPARIN 30MG/0.3ML SYR SUBCUT SCH (09:00)
[2019-03-01] MEDS: LEVETIRACETAM 500 MG in SODIUM CHLORIDE 0.9% 100 ML IV SCH ×2 (09:59→22:03)
[2019-03-01] MEDS ORDERED: VANCOMYCIN 500 MG PREMIX 100 ML IV NR (10:00)
[2019-03-01] MEDS ORDERED: ALBUMIN HUMAN 25GM/500ML (5%) IV SCH (12:00)
[2019-03-01 12:01] LABS: NUCLEATED RED BLOOD CELLS 2 /100 WBC; PLATELET ESTIMATE NORMAL
[2019-03-01] MEDS ORDERED: LIDOCAINE HCL 1% 20ML VIAL (Pyxis) INJ ONE (12:46)
[2019-03-01] MEDS ORDERED: SODIUM BICARBONATE 4% (2.4MEQ) 5ML VIAL IV ONE (12:50)
[2019-03-01] MEDS: PHYTONADIONE 10MG/ML AMP SUBCUT SCH (15:14)
[2019-03-01 20:10] LABS: TOTAL IRON BINDING CAPACITY 329 ug/dL (250-450)
[2019-03-01 20:25] LABS: FOLIC ACID (FOLATE) SERUM 15.3 ng/mL (>5.38)
[2019-03-02] VITALS (62 sets, daily range): BP systolic 92–121; BP diastolic 26–67
[2019-03-02] MEDS: BLOOD SUGAR DIAGNOSTIC STRIP TEST SCH ×4 (00:01→18:00)
[2019-03-02] MEDS: DEXT 5%/0.9% NACL 1,000 ML IV SCH (00:31)
[2019-03-02] MEDS: IPRATROPIUM/ALBUTEROL 0.5-3(2.5)MG/3ML NEB HHN SCH ×6 (00:39→20:20)
[2019-03-02] MEDS: PROPOFOL 10MG/ML 100ML 100 ML IV PRN ×3 (02:51→19:58)
[2019-03-02] MEDS: PIPERACILLIN/TAZOBACTAM 2.25 G in DEXTROSE 5% WATER 50 ML IV SCH ×4 (04:09→21:41)
[2019-03-02] MEDS: LACTULOSE 20G/30ML UDC PO SCH ×3 (05:32→22:33)
[2019-03-02] MEDS: INSULIN LISPRO 100 UNITS/ML SUBCUT SCH ×4 (05:33→18:00)
[2019-03-02 06:36] LABS: HEMATOCRIT. 26.1 % (42.0-52.0); HEMOGLOBIN. 7.9 g/dL (14.0-18.0); MEAN CORPUSCULAR HEMOGLOBIN 19.6 pg (28.0-32.0); MEAN CORPUSCULAR VOLUME 64.8 fL (80.0-94.0); MEAN PLATELET VOLUME 9.1 fl (7.4-10.4); PLATELET 175 x1000/uL (130-400); RED BLOOD CELL COUNT 4.02 mill/uL (4.7-6.1); RED CELL DISTRIBUTION WIDTH 28.1 % (11.6-14.6)
[2019-03-02 06:40] LABS: INR 1.4
[2019-03-02 07:10] LABS: PHOSPHORUS 2.5 mg/dL (2.5-4.9)
[2019-03-02] MEDS ORDERED: SODIUM BICARBONATE 4% (2.4MEQ) 5ML VIAL IV ONE (07:26)
[2019-03-02] MEDS: ENOXAPARIN 30MG/0.3ML SYR SUBCUT SCH (08:53)
[2019-03-02 09:01] LABS: BG CARBOXYHEMOGLOBIN 0.4 % (0.5-1.5); BG DEOXYHEMOGLOBIN 1.6 % (0.0-5.0); BG FRACTION INSPIRED OXYGEN 50; BG HCO3 ACT 32.9 mmol/L (22.0-26.0); BG METHEMOGLOBIN 0.4 % (0.0-1.5); BG OXYGEN SATURATION 98.4 % (92.0-98.5); BG OXYHEMOGLOBIN 97.6 % (94.0-97.0); BG PCO2 42.7 mmHg (35.0-45.0); BG PH 7.505 (7.350-7.450); BG PO2 137.6 mmHg (75.0-100.0); BG SAMPLE SITE RIGHT RADIAL; BG TIDAL VOLUME(mL) 500 mL; BG TOTAL HEMOGLOBIN 8.2 g/dL (12.0-18.0); BG VENT MODE VENT - A/C; BG VENT RATE 12 set
[2019-03-02] MEDS: DEXTROSE 5% WATER 1,000 ML IV SCH (09:02)
[2019-03-02] MEDS: LEVETIRACETAM 500 MG in SODIUM CHLORIDE 0.9% 100 ML IV SCH ×2 (09:02→20:50)
[2019-03-02] MEDS: MULTIVITAMINS,THER W-MINERALS TABLET NG SCH (09:03)
[2019-03-02] MEDS: PANTOPRAZOLE SODIUM 40 MG/VIAL IV SCH (09:03)
[2019-03-02] MEDS: THIAMINE HCL 100MG TABLET NG SCH (09:04)
[2019-03-02] MEDS: FOLIC ACID 1MG TABLET NG SCH (09:04)
[2019-03-02] MEDS ORDERED: POTASSIUM CHLORIDE INJ 40 MEQ in DEXT 5% WATER 250 ML IV NR (10:00)
[2019-03-02] MEDS ORDERED: VANCOMYCIN 750 MG PREMIX 150 ML IV NR ×2 (10:00→22:00)
[2019-03-02 13:15] LABS: *CREATININE RANDOM URINE 106.1 mg/dL (Not Estab.); MICROALBUMIN RANDOM URINE 48.4 ug/mL (Not Estab.)
[2019-03-02 14:06] LABS: PLATELET ESTIMATE NORMAL
[2019-03-02] MEDS: PHYTONADIONE 10MG/ML AMP SUBCUT SCH (15:33)
[2019-03-02] MEDS: IRON SUCROSE COMPLEX 100 MG/5 ML ML IV SCH (19:23)
[2019-03-03] VITALS (24 sets, daily range): BP systolic 88–106; BP diastolic 46–61
[2019-03-03] MEDS: BLOOD SUGAR DIAGNOSTIC STRIP TEST SCH ×4 (00:19→18:00)
[2019-03-03] MEDS: IPRATROPIUM/ALBUTEROL 0.5-3(2.5)MG/3ML NEB HHN SCH ×6 (00:20→20:30)
[2019-03-03] MEDS: PROPOFOL 10MG/ML 100ML 100 ML IV PRN ×4 (00:52→23:42)
[2019-03-03] MEDS: PIPERACILLIN/TAZOBACTAM 2.25 G in DEXTROSE 5% WATER 50 ML IV SCH ×3 (04:05→15:32)
[2019-03-03] MEDS: DEXTROSE 5% WATER 1,000 ML IV SCH (04:05)
[2019-03-03] MEDS: LACTULOSE 20G/30ML UDC PO SCH ×3 (05:58→21:46)
[2019-03-03] MEDS: INSULIN LISPRO 100 UNITS/ML SUBCUT SCH ×4 (05:58→18:00)
[2019-03-03 06:58] LABS: BASOPHILS % 0.3 % (0.0-2.0); HEMATOCRIT. 26.6 % (42.0-52.0); LYMPHOCYTES % 25.1 % (20.0-50.0); MEAN CORPUSCULAR HEMOGLOBIN 19.4 pg (28.0-32.0); MEAN CORPUSCULAR VOLUME 64.4 fL (80.0-94.0); MEAN PLATELET VOLUME 8.6 fl (7.4-10.4); MONOCYTES % 8.6 % (2.0-8.0); PLATELET 150 x1000/uL (130-400); RED BLOOD CELL COUNT 4.13 mill/uL (4.7-6.1); RED CELL DISTRIBUTION WIDTH 27.7 % (11.6-14.6)
[2019-03-03 07:14] LABS: PHOSPHORUS 2.3 mg/dL (2.5-4.9)
[2019-03-03 07:18] LABS: INR 1.3; PROTHROMBIN TIME 12.9 sec (9.6-11.0)
[2019-03-03] MEDS: LEVETIRACETAM 500 MG in SODIUM CHLORIDE 0.9% 100 ML IV SCH ×2 (09:53→21:45)
[2019-03-03] MEDS: ENOXAPARIN 30MG/0.3ML SYR SUBCUT SCH (09:53)
[2019-03-03] MEDS: THIAMINE HCL 100MG TABLET NG SCH (09:54)
[2019-03-03] MEDS: MULTIVITAMINS,THER W-MINERALS TABLET NG SCH (09:54)
[2019-03-03] MEDS: FOLIC ACID 1MG TABLET NG SCH (09:54)
[2019-03-03] MEDS: PANTOPRAZOLE SODIUM 40 MG/VIAL IV SCH (09:54)
[2019-03-03] MEDS ORDERED: KCL 20MEQ/100ML PREMIX 100 ML IV NR (11:00)
[2019-03-03] MEDS ORDERED: POTASSIUM PHOS,M-BASIC-D-BASIC 15 MMOL in DEXT 5% WATER 245 ML IV NR (12:30)
[2019-03-03] MEDS: PHYTONADIONE 10MG/ML AMP SUBCUT SCH (15:32)
[2019-03-03] MEDS: IRON SUCROSE COMPLEX 100 MG/5 ML ML IV SCH (17:51)
[2019-03-03] MEDS: VANCOMYCIN 750 MG PREMIX 150 ML IV SCH (21:45)
[2019-03-03] MEDS: RIFAXIMIN 550 MG TABLET PO SCH (21:46)
[2019-03-03] MEDS: PIPERACILLIN/TAZOBACTAM 3.375 G in DEXT 5% WATER 100 ML IV SCH (22:00)
[2019-03-04] VITALS (23 sets, daily range): BP systolic 92–127; BP diastolic 46–84
[2019-03-04] MEDS: DEXTROSE 5% WATER 1,000 ML IV SCH ×2 (00:05→21:44)
[2019-03-04] MEDS: BLOOD SUGAR DIAGNOSTIC STRIP TEST SCH ×5 (00:05→23:49)
[2019-03-04] MEDS: IPRATROPIUM/ALBUTEROL 0.5-3(2.5)MG/3ML NEB HHN SCH ×6 (00:21→21:05)
[2019-03-04] MEDS: PIPERACILLIN/TAZOBACTAM 3.375 G in DEXT 5% WATER 100 ML IV SCH ×4 (02:58→21:43)
[2019-03-04] MEDS: INSULIN LISPRO 100 UNITS/ML SUBCUT SCH ×5 (06:00→23:57)
[2019-03-04 06:01] LABS: BASOPHILS % 0.4 % (0.0-2.0); EOSINOPHILS % 5.3 % (0.0-5.0); HEMATOCRIT. 25.1 % (42.0-52.0); HEMOGLOBIN. 7.6 g/dL (14.0-18.0); LYMPHOCYTES % 26.6 % (20.0-50.0); MEAN CORPUSCULAR HEMOGLOBIN 19.8 pg (28.0-32.0); MEAN PLATELET VOLUME 8.8 fl (7.4-10.4); MONOCYTES % 10.7 % (2.0-8.0); PLATELET 150 x1000/uL (130-400); RED BLOOD CELL COUNT 3.86 mill/uL (4.7-6.1); RED CELL DISTRIBUTION WIDTH 28.2 % (11.6-14.6)
[2019-03-04] MEDS: LACTULOSE 20G/30ML UDC PO SCH (06:02)
[2019-03-04 06:03] LABS: INR 1.2; PROTHROMBIN TIME 12.7 sec (9.6-11.0)
[2019-03-04 06:12] LABS: PHOSPHORUS 2.9 mg/dL (2.5-4.9)
[2019-03-04] MEDS: PROPOFOL 10MG/ML 100ML 100 ML IV PRN (06:26)
[2019-03-04] MEDS: LEVETIRACETAM 500 MG in SODIUM CHLORIDE 0.9% 100 ML IV SCH ×2 (08:46→21:42)
[2019-03-04] MEDS: ENOXAPARIN 30MG/0.3ML SYR SUBCUT SCH (08:46)
[2019-03-04] MEDS: FOLIC ACID 1MG TABLET NG SCH (08:46)
[2019-03-04] MEDS: PANTOPRAZOLE SODIUM 40 MG/VIAL IV SCH (08:46)
[2019-03-04] MEDS: RIFAXIMIN 550 MG TABLET PO SCH ×2 (08:47→21:43)
[2019-03-04] MEDS: THIAMINE HCL 100MG TABLET NG SCH (08:47)
[2019-03-04] MEDS: MULTIVITAMINS,THER W-MINERALS TABLET NG SCH (08:47)
[2019-03-04] MEDS ORDERED: POTASSIUM CHLORIDE INJ 40 MEQ in DEXT 5% WATER 250 ML IV NR (11:00)
[2019-03-04 12:03] LABS: HEMATOCRIT 26.1 % (42.0-52.0); HEMOGLOBIN 7.8 g/dL (14.0-18.0)
[2019-03-04 12:08] LABS: BG BASE EXCESS 7.4 mmol/L (-2.0-2.0); BG CARBOXYHEMOGLOBIN 0.3 % (0.5-1.5); BG DEOXYHEMOGLOBIN 1.9 % (0.0-5.0); BG FRACTION INSPIRED OXYGEN 40; BG HCO3 ACT 31.9 mmol/L (22.0-26.0); BG METHEMOGLOBIN 0.5 % (0.0-1.5); BG OXYGEN SATURATION 98.1 % (92.0-98.5); BG OXYHEMOGLOBIN 97.3 % (94.0-97.0); BG PCO2 45.3 mmHg (35.0-45.0); BG PH 7.466 (7.350-7.450); BG PO2 131.3 mmHg (75.0-100.0); BG PRESSURE SUPPORT 8; BG SAMPLE SITE RIGHT RADIAL; BG TOTAL HEMOGLOBIN 8.2 g/dL (12.0-18.0); BG VENT MODE VENT - CPAP
[2019-03-04 13:41] LABS: PLATELET ESTIMATE NORMAL
[2019-03-04] MEDS: VANCOMYCIN 750 MG PREMIX 150 ML IV SCH (16:15)
[2019-03-04] MEDS: IRON SUCROSE COMPLEX 100 MG/5 ML ML IV SCH (18:54)
[2019-03-05] VITALS (12 sets, daily range): BP systolic 114–137; BP diastolic 28–78
[2019-03-05] MEDS: IPRATROPIUM/ALBUTEROL 0.5-3(2.5)MG/3ML NEB HHN SCH ×6 (00:36→21:12)
[2019-03-05] MEDS: PIPERACILLIN/TAZOBACTAM 3.375 G in DEXT 5% WATER 100 ML IV SCH ×4 (02:47→21:00)
[2019-03-05 05:45] LABS: BASOPHILS % 0.5 % (0.0-2.0); EOSINOPHILS % 4.1 % (0.0-5.0); HEMATOCRIT. 25.6 % (42.0-52.0); HEMOGLOBIN. 7.7 g/dL (14.0-18.0); LYMPHOCYTES % 22.8 % (20.0-50.0); MEAN CORPUSCULAR HEMOGLOBIN 19.8 pg (28.0-32.0); MEAN CORPUSCULAR VOLUME 65.6 fL (80.0-94.0); MEAN PLATELET VOLUME 8.8 fl (7.4-10.4); MONOCYTES % 10.4 % (2.0-8.0); NEUTROPHILS % 62.2 % (40.0-76.0); PLATELET 173 x1000/uL (130-400); RED CELL DISTRIBUTION WIDTH 28.3 % (11.6-14.6)
[2019-03-05 05:46] LABS: INR 1.2; PROTHROMBIN TIME 12.2 sec (9.6-11.0)
[2019-03-05] MEDS: INSULIN LISPRO 100 UNITS/ML SUBCUT SCH ×4 (06:00→23:44)
[2019-03-05 06:08] LABS: PHOSPHORUS 3.1 mg/dL (2.5-4.9)
[2019-03-05] MEDS: BLOOD SUGAR DIAGNOSTIC STRIP TEST SCH ×4 (06:08→23:43)
[2019-03-05] MEDS: FOLIC ACID 1MG TABLET NG SCH (08:13)
[2019-03-05] MEDS: ENOXAPARIN 30MG/0.3ML SYR SUBCUT SCH (08:13)
[2019-03-05] MEDS: LACTULOSE 20G/30ML UDC PO SCH (08:14)
[2019-03-05] MEDS: THIAMINE HCL 100MG TABLET NG SCH (08:14)
[2019-03-05] MEDS: RIFAXIMIN 550 MG TABLET PO SCH ×2 (08:14→21:00)
[2019-03-05] MEDS: MULTIVITAMINS,THER W-MINERALS TABLET NG SCH (08:14)
[2019-03-05] MEDS: PANTOPRAZOLE SODIUM 40 MG/VIAL IV SCH (08:49)
[2019-03-05] MEDS: LEVETIRACETAM 500 MG in SODIUM CHLORIDE 0.9% 100 ML IV SCH ×2 (08:49→21:26)
[2019-03-05] MEDS ORDERED: FUROSEMIDE 40MG/4ML VIAL IVP SCH (09:00)
[2019-03-05] MEDS ORDERED: POTASSIUM CHLORIDE 20MEQ/PACKET PO NR (10:30)
[2019-03-05] MEDS: VANCOMYCIN 750 MG PREMIX 150 ML IV SCH (11:15)
[2019-03-05] MEDS: FUROSEMIDE 40MG/4ML VIAL IVP SCH (12:37)
[2019-03-05] MEDS ORDERED: FUROSEMIDE 20MG/2ML VIAL IVP SCH (13:00)
[2019-03-05] MEDS: IRON SUCROSE COMPLEX 100 MG/5 ML ML IV SCH (17:13)
[2019-03-05] MEDS: DEXTROSE 5% WATER 1,000 ML IV SCH (17:13)
[2019-03-05] MEDS: DIPHENHYDRAMINE 50MG/ML VIAL IV PRN (21:25)
[2019-03-06] VITALS (12 sets, daily range): BP systolic 104–139; BP diastolic 63–77
[2019-03-06] MEDS: IPRATROPIUM/ALBUTEROL 0.5-3(2.5)MG/3ML NEB HHN SCH ×6 (00:46→21:03)
[2019-03-06] MEDS: PIPERACILLIN/TAZOBACTAM 3.375 G in DEXT 5% WATER 100 ML IV SCH ×4 (03:17→22:18)
[2019-03-06 04:30] LABS: BASOPHILS % 0.5 % (0.0-2.0); EOSINOPHILS % 6.4 % (0.0-5.0); HEMATOCRIT. 27.7 % (42.0-52.0); HEMOGLOBIN. 8.3 g/dL (14.0-18.0); LYMPHOCYTES % 31.2 % (20.0-50.0); MEAN CORPUSCULAR HEMOGLOBIN 20.2 pg (28.0-32.0); MEAN CORPUSCULAR VOLUME 67.7 fL (80.0-94.0); MEAN PLATELET VOLUME 8.9 fl (7.4-10.4); MONOCYTES % 11.3 % (2.0-8.0); NEUTROPHILS % 50.6 % (40.0-76.0); PLATELET 180 x1000/uL (130-400); RED BLOOD CELL COUNT 4.09 mill/uL (4.7-6.1); RED CELL DISTRIBUTION WIDTH 28.7 % (11.6-14.6)
[2019-03-06 04:41] LABS: PHOSPHORUS 2.5 mg/dL (2.5-4.9)
[2019-03-06 04:45] LABS: VANCOMYCIN TROUGH 18.9 ug/mL (5.0-10.0)
[2019-03-06] MEDS: INSULIN LISPRO 100 UNITS/ML SUBCUT SCH ×4 (05:45→23:50)
[2019-03-06] MEDS: BLOOD SUGAR DIAGNOSTIC STRIP TEST SCH ×4 (05:45→23:49)
[2019-03-06] MEDS ORDERED: VANCOMYCIN 750 MG PREMIX 150 ML IV SCH (06:00)
[2019-03-06] MEDS: LACTULOSE 20G/30ML UDC PO SCH (09:14)
[2019-03-06] MEDS: FOLIC ACID 1MG TABLET NG SCH (09:14)
[2019-03-06] MEDS: THIAMINE HCL 100MG TABLET NG SCH (09:14)
[2019-03-06] MEDS: FUROSEMIDE 40MG/4ML VIAL IVP SCH (09:14)
[2019-03-06] MEDS: MULTIVITAMINS,THER W-MINERALS TABLET NG SCH (09:14)
[2019-03-06] MEDS: FAMOTIDINE 20MG/2ML VIAL IV SCH (09:14)
[2019-03-06] MEDS: RIFAXIMIN 550 MG TABLET PO SCH ×2 (09:15→21:00)
[2019-03-06] MEDS: POTASSIUM CHLORIDE 20MEQ TABLET SR PO SCH (09:15)
[2019-03-06] MEDS: LEVETIRACETAM 500 MG in SODIUM CHLORIDE 0.9% 100 ML IV SCH ×2 (09:16→21:39)
[2019-03-06] MEDS: ENOXAPARIN 30MG/0.3ML SYR SUBCUT SCH (09:33)
[2019-03-06] MEDS ORDERED: POTASSIUM CHLORIDE 20MEQ TABLET SR PO NR (10:30)
[2019-03-06] MEDS ORDERED: LORAZEPAM 2MG/ML CPJ IV PRN (13:30)
[2019-03-06] MEDS: DIPHENHYDRAMINE 50MG/ML VIAL IV PRN ×2 (13:30→20:37)
[2019-03-06] MEDS: RISPERIDONE 1MG TABLET PO SCH (17:46)
[2019-03-06] MEDS: IRON SUCROSE COMPLEX 100 MG/5 ML ML IV SCH (17:46)
[2019-03-07] VITALS (12 sets, daily range): BP systolic 104–126; BP diastolic 55–82
[2019-03-07] MEDS: IPRATROPIUM/ALBUTEROL 0.5-3(2.5)MG/3ML NEB HHN SCH ×6 (00:24→20:14)
[2019-03-07] MEDS: DIPHENHYDRAMINE 50MG/ML VIAL IV PRN (01:49)
[2019-03-07] MEDS: PIPERACILLIN/TAZOBACTAM 3.375 G in DEXT 5% WATER 100 ML IV SCH ×4 (03:00→21:27)
[2019-03-07] MEDS: VANCOMYCIN 1 G PREMIX 200 ML IV SCH (05:17)
[2019-03-07] MEDS: INSULIN LISPRO 100 UNITS/ML SUBCUT SCH ×2 (06:00→12:00)
[2019-03-07] MEDS: BLOOD SUGAR DIAGNOSTIC STRIP TEST SCH ×2 (06:08→12:38)
[2019-03-07 07:22] LABS: BASOPHILS % 0.7 % (0.0-2.0); EOSINOPHILS % 7.9 % (0.0-5.0); HEMOGLOBIN. 7.8 g/dL (14.0-18.0); LYMPHOCYTES % 29.3 % (20.0-50.0); MEAN CORPUSCULAR HEMOGLOBIN 20.3 pg (28.0-32.0); MEAN CORPUSCULAR VOLUME 67.8 fL (80.0-94.0); MONOCYTES % 11.9 % (2.0-8.0); NEUTROPHILS % 50.2 % (40.0-76.0); PLATELET 185 x1000/uL (130-400); RED BLOOD CELL COUNT 3.84 mill/uL (4.7-6.1); RED CELL DISTRIBUTION WIDTH 28.7 % (11.6-14.6)
[2019-03-07 07:54] LABS: PHOSPHORUS 2.2 mg/dL (2.5-4.9)
[2019-03-07] MEDS: FUROSEMIDE 40MG/4ML VIAL IVP SCH (07:57)
[2019-03-07] MEDS: FAMOTIDINE 20MG/2ML VIAL IV SCH (07:57)
[2019-03-07] MEDS: RISPERIDONE 1MG TABLET PO SCH (07:59)
[2019-03-07] MEDS: MULTIVITAMINS,THER W-MINERALS TABLET NG SCH (07:59)
[2019-03-07] MEDS: LACTULOSE 20G/30ML UDC PO SCH (07:59)
[2019-03-07] MEDS: THIAMINE HCL 100MG TABLET NG SCH (07:59)
[2019-03-07] MEDS: POTASSIUM CHLORIDE 20MEQ TABLET SR PO SCH (07:59)
[2019-03-07] MEDS: FOLIC ACID 1MG TABLET NG SCH (07:59)
[2019-03-07] MEDS: RIFAXIMIN 550 MG TABLET PO SCH ×2 (07:59→21:27)
[2019-03-07] MEDS: ENOXAPARIN 30MG/0.3ML SYR SUBCUT SCH (08:01)
[2019-03-07] MEDS: LEVETIRACETAM 500 MG in SODIUM CHLORIDE 0.9% 100 ML IV SCH ×2 (09:33→21:28)
[2019-03-07] MEDS ORDERED: POTASSIUM CHLORIDE 20MEQ TABLET SR PO ONE (09:45)
[2019-03-07] MEDS ORDERED: POTASSIUM PHOS,M-BASIC-D-BASIC 15 MMOL in DEXT 5% WATER 250 ML IV SCH (10:00)
[2019-03-08] VITALS (12 sets, daily range): BP systolic 106–133; BP diastolic 58–78
[2019-03-08] MEDS: BLOOD SUGAR DIAGNOSTIC STRIP TEST SCH ×5 (00:12→23:29)
[2019-03-08] MEDS: IPRATROPIUM/ALBUTEROL 0.5-3(2.5)MG/3ML NEB HHN SCH ×6 (00:20→20:50)
[2019-03-08] MEDS: PIPERACILLIN/TAZOBACTAM 3.375 G in DEXT 5% WATER 100 ML IV SCH ×4 (04:01→20:13)
[2019-03-08] MEDS: VANCOMYCIN 1 G PREMIX 200 ML IV SCH (05:13)
[2019-03-08] MEDS: INSULIN LISPRO 100 UNITS/ML SUBCUT SCH ×5 (05:19→23:30)
[2019-03-08] MEDS: LEVETIRACETAM 500 MG in SODIUM CHLORIDE 0.9% 100 ML IV SCH ×2 (08:28→20:35)
[2019-03-08] MEDS: POTASSIUM CHLORIDE 20MEQ TABLET SR PO SCH (08:45)
[2019-03-08] MEDS: THIAMINE HCL 100MG TABLET NG SCH (08:45)
[2019-03-08] MEDS: RIFAXIMIN 550 MG TABLET PO SCH ×2 (08:45→20:13)
[2019-03-08] MEDS: RISPERIDONE 1MG TABLET PO SCH (08:45)
[2019-03-08] MEDS: MULTIVITAMINS,THER W-MINERALS TABLET NG SCH (08:45)
[2019-03-08] MEDS: FOLIC ACID 1MG TABLET NG SCH (08:45)
[2019-03-08] MEDS: ENOXAPARIN 30MG/0.3ML SYR SUBCUT SCH (08:46)
[2019-03-08] MEDS: FAMOTIDINE 20MG/2ML VIAL IV SCH (08:46)
[2019-03-08] MEDS: LACTULOSE 20G/30ML UDC PO SCH ×3 (08:46→21:08)
[2019-03-08] MEDS: FUROSEMIDE 40MG/4ML VIAL IVP SCH (08:46)
[2019-03-08 10:28] LABS: BASOPHILS % 0.5 % (0.0-2.0); EOSINOPHILS % 7.3 % (0.0-5.0); HEMATOCRIT. 28.3 % (42.0-52.0); HEMOGLOBIN. 8.3 g/dL (14.0-18.0); LYMPHOCYTES % 32.9 % (20.0-50.0); MEAN CORPUSCULAR HEMOGLOBIN 20.2 pg (28.0-32.0); MEAN PLATELET VOLUME 8.9 fl (7.4-10.4); MONOCYTES % 11.5 % (2.0-8.0); NEUTROPHILS % 47.8 % (40.0-76.0); PLATELET 200 x1000/uL (130-400); RED CELL DISTRIBUTION WIDTH 29.9 % (11.6-14.6)
[2019-03-08 10:31] LABS: PHOSPHORUS 3.1 mg/dL (2.5-4.9)
[2019-03-09] VITALS (12 sets, daily range): BP systolic 115–147; BP diastolic 52–83
[2019-03-09] MEDS: IPRATROPIUM/ALBUTEROL 0.5-3(2.5)MG/3ML NEB HHN SCH ×6 (00:53→20:04)
[2019-03-09] MEDS: PIPERACILLIN/TAZOBACTAM 3.375 G in DEXT 5% WATER 100 ML IV SCH ×4 (02:24→20:37)
[2019-03-09] MEDS: LACTULOSE 20G/30ML UDC PO SCH ×3 (05:13→21:05)
[2019-03-09] MEDS: VANCOMYCIN 1 G PREMIX 200 ML IV SCH (05:14)
[2019-03-09] MEDS: INSULIN LISPRO 100 UNITS/ML SUBCUT SCH (05:34)
[2019-03-09] MEDS: BLOOD SUGAR DIAGNOSTIC STRIP TEST SCH (05:34)
[2019-03-09 05:51] LABS: BASOPHILS % 0.8 % (0.0-2.0); EOSINOPHILS % 8.2 % (0.0-5.0); HEMATOCRIT. 28.5 % (42.0-52.0); HEMOGLOBIN. 8.4 g/dL (14.0-18.0); LYMPHOCYTES % 29.2 % (20.0-50.0); MEAN CORPUSCULAR HEMOGLOBIN 20.3 pg (28.0-32.0); MEAN CORPUSCULAR VOLUME 69.1 fL (80.0-94.0); MEAN PLATELET VOLUME 8.7 fl (7.4-10.4); MONOCYTES % 10.8 % (2.0-8.0); PLATELET 215 x1000/uL (130-400); RED BLOOD CELL COUNT 4.12 mill/uL (4.7-6.1)
[2019-03-09 06:06] LABS: PHOSPHORUS 2.7 mg/dL (2.5-4.9)
[2019-03-09] MEDS ORDERED: POTASSIUM CHLORIDE 20MEQ/PACKET PO SCH (07:30)
[2019-03-09] MEDS: LEVETIRACETAM 500 MG in SODIUM CHLORIDE 0.9% 100 ML IV SCH ×2 (08:01→20:37)
[2019-03-09] MEDS: FAMOTIDINE 20MG/2ML VIAL IV SCH (09:47)
[2019-03-09] MEDS: POTASSIUM CHLORIDE 20MEQ TABLET SR PO SCH (09:47)
[2019-03-09] MEDS: THIAMINE HCL 100MG TABLET NG SCH (09:47)
[2019-03-09] MEDS: FUROSEMIDE 40MG/4ML VIAL IVP SCH ×2 (09:47→09:56)
[2019-03-09] MEDS: FOLIC ACID 1MG TABLET NG SCH (09:47)
[2019-03-09] MEDS: RISPERIDONE 1MG TABLET PO SCH (09:47)
[2019-03-09] MEDS: MULTIVITAMINS,THER W-MINERALS TABLET NG SCH (09:47)
[2019-03-09] MEDS: RIFAXIMIN 550 MG TABLET PO SCH ×2 (09:47→20:38)
[2019-03-09] MEDS: CARVEDILOL 3.125 MG TABLET PO SCH ×2 (09:48→20:38)
[2019-03-09] MEDS: ENOXAPARIN 30MG/0.3ML SYR SUBCUT SCH (09:48)
[2019-03-10] VITALS (24 sets, daily range): BP systolic 105–134; BP diastolic 62–97
[2019-03-10] MEDS: IPRATROPIUM/ALBUTEROL 0.5-3(2.5)MG/3ML NEB HHN SCH ×6 (00:40→19:58)
[2019-03-10] MEDS: PIPERACILLIN/TAZOBACTAM 3.375 G in DEXT 5% WATER 100 ML IV SCH ×4 (03:01→21:29)
[2019-03-10] MEDS: LACTULOSE 20G/30ML UDC PO SCH ×4 (05:07→23:11)
[2019-03-10] MEDS: VANCOMYCIN 1 G PREMIX 200 ML IV SCH (05:08)
[2019-03-10 07:39] LABS: PHOSPHORUS 2.2 mg/dL (2.5-4.9)
[2019-03-10] MEDS: LEVETIRACETAM 500 MG in SODIUM CHLORIDE 0.9% 100 ML IV SCH ×2 (08:13→22:19)
[2019-03-10 09:04] LABS: HEMATOCRIT. 29.7 % (42.0-52.0); HEMOGLOBIN. 8.7 g/dL (14.0-18.0); MEAN CORPUSCULAR HEMOGLOBIN 20.8 pg (28.0-32.0); MEAN CORPUSCULAR VOLUME 70.9 fL (80.0-94.0); MEAN PLATELET VOLUME 8.9 fl (7.4-10.4); PLATELET 207 x1000/uL (130-400); RED BLOOD CELL COUNT 4.19 mill/uL (4.7-6.1); RED CELL DISTRIBUTION WIDTH 31.7 % (11.6-14.6)
[2019-03-10] MEDS: THIAMINE HCL 100MG TABLET NG SCH (09:31)
[2019-03-10] MEDS: POTASSIUM CHLORIDE 20MEQ TABLET SR PO SCH (09:31)
[2019-03-10] MEDS: RISPERIDONE 1MG TABLET PO SCH (09:31)
[2019-03-10] MEDS: FOLIC ACID 1MG TABLET NG SCH (09:31)
[2019-03-10] MEDS: RIFAXIMIN 550 MG TABLET PO SCH ×3 (09:31→23:12)
[2019-03-10] MEDS: ENOXAPARIN 30MG/0.3ML SYR SUBCUT SCH (09:31)
[2019-03-10] MEDS: MULTIVITAMINS,THER W-MINERALS TABLET NG SCH (09:31)
[2019-03-10] MEDS: FAMOTIDINE 20MG/2ML VIAL IV SCH (09:31)
[2019-03-10] MEDS: CARVEDILOL 3.125 MG TABLET PO SCH ×2 (09:32→21:00)
[2019-03-10 10:25] LABS: PLATELET ESTIMATE NORMAL
[2019-03-10] MEDS ORDERED: SODIUM PHOS,M-BASIC-D-BASIC 15 MM in DEXT 5% WATER 245 ML IV NR (19:30)
[2019-03-10 20:13] LABS: BG BASE EXCESS 6.8 mmol/L (-2.0-2.0); BG CARBOXYHEMOGLOBIN 0.7 % (0.5-1.5); BG DEOXYHEMOGLOBIN 2.4 % (0.0-5.0); BG FRACTION INSPIRED OXYGEN 40; BG HCO3 ACT 35.7 mmol/L (22.0-26.0); BG METHEMOGLOBIN 0.3 % (0.0-1.5); BG OXYGEN SATURATION 97.6 % (92.0-98.5); BG OXYHEMOGLOBIN 96.6 % (94.0-97.0); BG PCO2 79.8 mmHg (35.0-45.0); BG PH 7.268 (7.350-7.450); BG PO2 116.2 mmHg (75.0-100.0); BG SAMPLE SITE LEFT RADIAL; BG TOTAL HEMOGLOBIN 10.3 g/dL (12.0-18.0); BG VENT MODE MASK - SIMPLE
[2019-03-10 22:43] LABS: BG BASE EXCESS 9.1 mmol/L (-2.0-2.0); BG BILEVEL POS AIRWAY PRESSURE 20/5; BG CARBOXYHEMOGLOBIN 0.8 % (0.5-1.5); BG DEOXYHEMOGLOBIN 2.2 % (0.0-5.0); BG FRACTION INSPIRED OXYGEN 40; BG METHEMOGLOBIN 0.3 % (0.0-1.5); BG OXYGEN SATURATION 97.8 % (92.0-98.5); BG OXYHEMOGLOBIN 96.7 % (94.0-97.0); BG PCO2 73.3 mmHg (35.0-45.0); BG PH 7.321 (7.350-7.450); BG PO2 112.4 mmHg (75.0-100.0); BG SAMPLE SITE RIGHT RADIAL; BG TOTAL HEMOGLOBIN 9.6 g/dL (12.0-18.0); BG VENT MODE MASK - BIPAP; BG VENT RATE 22 set
[2019-03-11] VITALS (23 sets, daily range): BP systolic 104–132; BP diastolic 51–89
[2019-03-11] MEDS: IPRATROPIUM/ALBUTEROL 0.5-3(2.5)MG/3ML NEB HHN SCH ×6 (00:18→20:11)
[2019-03-11] MEDS: PIPERACILLIN/TAZOBACTAM 3.375 G in DEXT 5% WATER 100 ML IV SCH ×4 (03:26→21:16)
[2019-03-11] MEDS: VANCOMYCIN 1 G PREMIX 200 ML IV SCH (05:22)
[2019-03-11 05:49] LABS: HEMATOCRIT. 30.1 % (42.0-52.0); HEMOGLOBIN. 8.9 g/dL (14.0-18.0); MEAN CORPUSCULAR HEMOGLOBIN 21.3 pg (28.0-32.0); MEAN CORPUSCULAR VOLUME 72.3 fL (80.0-94.0); MEAN PLATELET VOLUME 8.9 fl (7.4-10.4); PLATELET 179 x1000/uL (130-400); RED BLOOD CELL COUNT 4.17 mill/uL (4.7-6.1); RED CELL DISTRIBUTION WIDTH 31.4 % (11.6-14.6)
[2019-03-11] MEDS: LACTULOSE 20G/30ML UDC PO SCH (06:20)
[2019-03-11 08:06] LABS: BG BASE EXCESS 12.5 mmol/L (-2.0-2.0); BG BILEVEL POS AIRWAY PRESSURE 20/5; BG CARBOXYHEMOGLOBIN 0.7 % (0.5-1.5); BG DEOXYHEMOGLOBIN 13.1 % (0.0-5.0); BG FRACTION INSPIRED OXYGEN 35; BG METHEMOGLOBIN 0.3 % (0.0-1.5); BG OXYGEN SATURATION 86.8 % (92.0-98.5); BG OXYHEMOGLOBIN 85.9 % (94.0-97.0); BG PCO2 71.1 mmHg (35.0-45.0); BG PH 7.368 (7.350-7.450); BG PO2 56.2 mmHg (75.0-100.0); BG SAMPLE SITE RIGHT BRACHIAL; BG VENT MODE MASK - BIPAP
[2019-03-11] MEDS: LEVETIRACETAM 500 MG in SODIUM CHLORIDE 0.9% 100 ML IV SCH ×2 (08:30→21:16)
[2019-03-11] MEDS: CARVEDILOL 3.125 MG TABLET PO SCH (08:32)
[2019-03-11] MEDS: FAMOTIDINE 20MG/2ML VIAL IV SCH (08:36)
[2019-03-11] MEDS: ENOXAPARIN 40MG/0.4ML SYR SUBCUT SCH (08:36)
[2019-03-11 08:49] LABS: PLATELET ESTIMATE NORMAL
[2019-03-11] MEDS: RIFAXIMIN 550 MG TABLET PO SCH ×2 (09:00→21:00)
[2019-03-11] MEDS: MULTIVITAMINS,THER W-MINERALS TABLET NG SCH (09:00)
[2019-03-11] MEDS: RISPERIDONE 1MG TABLET PO SCH (09:00)
[2019-03-11] MEDS: THIAMINE HCL 100MG TABLET NG SCH (09:00)
[2019-03-11] MEDS: FOLIC ACID 1MG TABLET NG SCH (09:00)
[2019-03-11] MEDS ORDERED: LACTULOSE 300 ML in WATER FOR IRRIGATION,STERILE 700 ML IR SCH (09:45)
[2019-03-11] MEDS: LACTULOSE 20G/30ML UDC PR SCH ×2 (09:47→21:08)
[2019-03-11 13:19] LABS: BG BILEVEL POS AIRWAY PRESSURE 20/5; BG CARBOXYHEMOGLOBIN 0.5 % (0.5-1.5); BG FRACTION INSPIRED OXYGEN 40; BG HCO3 ACT 37.2 mmol/L (22.0-26.0); BG METHEMOGLOBIN 0.4 % (0.0-1.5); BG OXYHEMOGLOBIN 95.1 % (94.0-97.0); BG PCO2 66.9 mmHg (35.0-45.0); BG PH 7.363 (7.350-7.450); BG SAMPLE SITE RIGHT BRACHIAL; BG TOTAL HEMOGLOBIN 9.7 g/dL (12.0-18.0); BG VENT MODE MASK - BIPAP; BG VENT RATE 20 set
[2019-03-12] VITALS (24 sets, daily range): BP systolic 86–134; BP diastolic 48–87
[2019-03-12] MEDS: IPRATROPIUM/ALBUTEROL 0.5-3(2.5)MG/3ML NEB HHN SCH ×6 (00:15→19:52)
[2019-03-12] MEDS: DIPHENHYDRAMINE 50MG/ML VIAL IV PRN (01:04)
[2019-03-12 05:49] LABS: HEMATOCRIT. 29.9 % (42.0-52.0); HEMOGLOBIN. 8.9 g/dL (14.0-18.0); MEAN CORPUSCULAR HEMOGLOBIN 21.3 pg (28.0-32.0); MEAN CORPUSCULAR VOLUME 71.9 fL (80.0-94.0); MEAN PLATELET VOLUME 8.8 fl (7.4-10.4); PLATELET 172 x1000/uL (130-400); RED BLOOD CELL COUNT 4.16 mill/uL (4.7-6.1); RED CELL DISTRIBUTION WIDTH 32.6 % (11.6-14.6)
[2019-03-12 05:55] LABS: CHLORIDE 108 mEq/L (98-107)
[2019-03-12] MEDS: PIPERACILLIN/TAZOBACTAM 3.375 G in DEXT 5% WATER 100 ML IV SCH ×4 (05:59→20:04)
[2019-03-12] MEDS: VANCOMYCIN 1 G PREMIX 200 ML IV SCH (05:59)
[2019-03-12] MEDS: LACTULOSE 20G/30ML UDC PR SCH ×3 (06:00→22:09)
[2019-03-12 08:08] LABS: PLATELET ESTIMATE NORMAL
[2019-03-12] MEDS: RIFAXIMIN 550 MG TABLET PO SCH ×2 (09:00→20:04)
[2019-03-12] MEDS: RISPERIDONE 1MG TABLET PO SCH (09:00)
[2019-03-12] MEDS: THIAMINE HCL 100MG TABLET NG SCH (09:00)
[2019-03-12] MEDS: FOLIC ACID 1MG TABLET NG SCH (09:00)
[2019-03-12] MEDS: MULTIVITAMINS,THER W-MINERALS TABLET NG SCH (09:00)
[2019-03-12] MEDS: FAMOTIDINE 20MG/2ML VIAL IV SCH (09:54)
[2019-03-12] MEDS: LEVETIRACETAM 500 MG in SODIUM CHLORIDE 0.9% 100 ML IV SCH ×2 (09:54→20:04)
[2019-03-12] MEDS: ENOXAPARIN 40MG/0.4ML SYR SUBCUT SCH (09:54)
[2019-03-13] VITALS (7 sets, daily range): BP systolic 124–147; BP diastolic 66–78
[2019-03-13] MEDS: IPRATROPIUM/ALBUTEROL 0.5-3(2.5)MG/3ML NEB HHN SCH ×6 (00:26→21:53)
[2019-03-13] MEDS: PIPERACILLIN/TAZOBACTAM 3.375 G in DEXT 5% WATER 100 ML IV SCH ×4 (04:41→21:51)
[2019-03-13] MEDS: LACTULOSE 20G/30ML UDC PR SCH ×3 (06:35→21:50)
[2019-03-13] MEDS: VANCOMYCIN 1 G PREMIX 200 ML IV SCH (06:35)
[2019-03-13] MEDS ORDERED: SPIRONOLACTONE 25MG TABLET PO SCH (09:00)
[2019-03-13] MEDS ORDERED: FUROSEMIDE 40MG TABLET PO SCH (09:00)
[2019-03-13] MEDS: MULTIVITAMINS,THER W-MINERALS TABLET NG SCH (09:44)
[2019-03-13] MEDS: FOLIC ACID 1MG TABLET NG SCH (09:44)
[2019-03-13] MEDS: RISPERIDONE 1MG TABLET PO SCH (09:44)
[2019-03-13] MEDS: RIFAXIMIN 550 MG TABLET PO SCH ×2 (09:44→21:50)
[2019-03-13] MEDS: THIAMINE HCL 100MG TABLET NG SCH (09:44)
[2019-03-13] MEDS: LEVETIRACETAM 500 MG in SODIUM CHLORIDE 0.9% 100 ML IV SCH ×2 (09:45→21:50)
[2019-03-13] MEDS: CARVEDILOL 3.125 MG TABLET PO SCH ×2 (09:45→21:50)
[2019-03-13] MEDS: DIPHENHYDRAMINE 50MG/ML VIAL IV PRN (09:47)
[2019-03-13] MEDS: FAMOTIDINE 20MG/2ML VIAL IV SCH (09:56)
[2019-03-13] MEDS: ENOXAPARIN 40MG/0.4ML SYR SUBCUT SCH (11:09)
[2019-03-13] MEDS: LORAZEPAM 2MG/ML CPJ IV PRN ×2 (11:09→23:26)
[2019-03-13 16:08] LABS: CHLORIDE 110 mEq/L (98-107)
[2019-03-13] MEDS ORDERED: SODIUM PHOS,M-BASIC-D-BASIC 15 MM in DEXT 5% WATER 245 ML IV SCH (20:00)
[2019-03-14] VITALS: BP 134/79
[2019-03-14] MEDS: IPRATROPIUM/ALBUTEROL 0.5-3(2.5)MG/3ML NEB HHN SCH ×5 (01:29→15:50)
[2019-03-14] MEDS: PIPERACILLIN/TAZOBACTAM 3.375 G in DEXT 5% WATER 100 ML IV SCH ×2 (03:37→09:33)
[2019-03-14 04:00] VITALS: BP 116/58
[2019-03-14 06:00] LABS: CHLORIDE 108 mEq/L (98-107)
[2019-03-14] MEDS: VANCOMYCIN 1 G PREMIX 200 ML IV SCH (06:01)
[2019-03-14] MEDS: LACTULOSE 20G/30ML UDC PR SCH (06:01)
[2019-03-14 06:09] LABS: PHOSPHORUS 2.3 mg/dL (2.5-4.9)
[2019-03-14 06:16] LABS: BASOPHILS % 0.9 % (0.0-2.0); EOSINOPHILS % 3.2 % (0.0-5.0); HEMATOCRIT. 28.4 % (42.0-52.0); HEMOGLOBIN. 8.3 g/dL (14.0-18.0); LYMPHOCYTES % 27.1 % (20.0-50.0); MEAN CORPUSCULAR HEMOGLOBIN 21.7 pg (28.0-32.0); MEAN CORPUSCULAR VOLUME 74.3 fL (80.0-94.0); MEAN PLATELET VOLUME 8.8 fl (7.4-10.4); MONOCYTES % 6.7 % (2.0-8.0); NEUTROPHILS % 62.1 % (40.0-76.0); PLATELET 144 x1000/uL (130-400); RED BLOOD CELL COUNT 3.83 mill/uL (4.7-6.1); RED CELL DISTRIBUTION WIDTH 35.6 % (11.6-14.6)
[2019-03-14 08:00] VITALS: BP 123/52
[2019-03-14] MEDS: MULTIVITAMINS,THER W-MINERALS TABLET NG SCH (09:00)
[2019-03-14] MEDS: FAMOTIDINE 20MG/2ML VIAL IV SCH (09:00)
[2019-03-14] MEDS: ENOXAPARIN 40MG/0.4ML SYR SUBCUT SCH (09:34)
[2019-03-14 11:42] VITALS: BP 123/52
[2019-03-14 12:00] VITALS: BP 145/73
[2019-03-14] MEDS ORDERED: FUROSEMIDE 40MG/4ML VIAL IVP NR (13:00)
[2019-03-14] MEDS ORDERED: POTASSIUM PHOS,M-BASIC-D-BASIC 15 MMOL in DEXT 5% WATER 245 ML IV NR (14:00)
[2019-03-14 16:00] VITALS: BP 99/59
== END 2019-03-14 19:04 | disposition hospice, home (50) | DRG 720 ==
LOC: ER 15:51 → 5EST 18:06 → EDBEDREQ 18:10 → EDBEDREQSVC 18:10 → EDBEDREQ 18:11 → ENRESERV 21:50 → CVICU 02-28 14:25 → 3WST 03-04 22:45 → MICUSO 03-10 20:40 → 5EST 03-12 08:43 → 5WST 03-12 22:52 → 8WST 03-13 20:50
PROVIDERS: ADMIT Internal Medicine; ATTEND Internal Medicine
PROC: 5A1945Z Respiratory Ventilation, 24-96 Consecutive Hours (ICD-10-PCS; principal; 2019-02-28)
PROC: 0BH17EZ Insertion of Endotracheal Airway into Trachea, Via Natural or Artificial Opening (ICD-10-PCS; 2019-02-28)
PROC: 4A00X4Z Measurement of Central Nervous Electrical Activity, External Approach (ICD-10-PCS; 2019-03-01)
PROC: 0W9G3ZZ Drainage of Peritoneal Cavity, Percutaneous Approach (ICD-10-PCS; 2019-03-01)
PROC: 0W993ZZ Drainage of Right Pleural Cavity, Percutaneous Approach (ICD-10-PCS; 2019-03-02)
PROC: 5A09457 Assistance with Respiratory Ventilation, 24-96 Consecutive Hours, Continuous Positive Airway Pressure (ICD-10-PCS; 2019-03-10)
PROC: 5A09357 Assistance with Respiratory Ventilation, Less than 24 Consecutive Hours, Continuous Positive Airway Pressure (ICD-10-PCS; 2019-03-13)
PROC: 5A09357 Assistance with Respiratory Ventilation, Less than 24 Consecutive Hours, Continuous Positive Airway Pressure (ICD-10-PCS; 2019-03-14)
DX: A41.9 Sepsis, unspecified organism (principal); J69.0 Pneumonitis due to inhalation of food and vomit; J96.21 Acute and chronic respiratory failure with hypoxia; E87.4 Mixed disorder of acid-base balance; I50.43 Acute on chronic combined systolic (congestive) and diastolic (congestive) heart failure; J84.9 Interstitial pulmonary disease, unspecified; E44.0 Moderate protein-calorie malnutrition; K72.90 Hepatic failure, unspecified without coma; N17.9 Acute kidney failure, unspecified; D68.9 Coagulation defect, unspecified; E83.39 Other disorders of phosphorus metabolism; E83.51 Hypocalcemia; N18.9 Chronic kidney disease, unspecified; D50.9 Iron deficiency anemia, unspecified; E87.0 Hyperosmolality and hypernatremia; F03.90 Unspecified dementia, unspecified severity, without behavioral disturbance, psychotic disturbance, mood disturbance, and anxiety; E87.1 Hypo-osmolality and hyponatremia; E87.6 Hypokalemia; E78.00 Pure hypercholesterolemia, unspecified; F10.10 Alcohol abuse, uncomplicated; I27.29 Other secondary pulmonary hypertension; I42.9 Cardiomyopathy, unspecified; J96.22 Acute and chronic respiratory failure with hypercapnia; E11.9 Type 2 diabetes mellitus without complications; G40.409 Other generalized epilepsy and epileptic syndromes, not intractable, without status epilepticus; G93.89 Other specified disorders of brain; K70.31 Alcoholic cirrhosis of liver with ascites; K80.20 Calculus of gallbladder without cholecystitis without obstruction; J91.8 Pleural effusion in other conditions classified elsewhere; E11.22 Type 2 diabetes mellitus with diabetic chronic kidney disease; I13.0 Hypertensive heart and chronic kidney disease with heart failure and stage 1 through stage 4 chronic kidney disease, or unspecified chronic kidney disease; H57.02 Anisocoria; Z66 Do not resuscitate; Z51.5 Encounter for palliative care; K76.1 Chronic passive congestion of liver; T50.2X5A Adverse effect of carbonic-anhydrase inhibitors, benzothiadiazides and other diuretics, initial encounter; Z98.2 Presence of cerebrospinal fluid drainage device; Z83.3 Family history of diabetes mellitus; Z82.49 Family history of ischemic heart disease and other diseases of the circulatory system; Z78.1 Physical restraint status; Z79.899 Other long term (current) drug therapy; Z99.81 Dependence on supplemental oxygen; I69.30 Unspecified sequelae of cerebral infarction; Y92.89 Other specified places as the place of occurrence of the external cause; Z68.26 Body mass index [BMI] 26.0-26.9, adult
CPT/HCPCS: 31500; 32555; 36415; 36600; 49083; 71045; 71250; 74018; 76700; 76705; 80048; 80061; 80156; 80165; 80184; 80185; 80202; 80305; 80320; 81003; 82040; 82043; 82140; 82375; 82550; 82553; 82570; 82607; 82728; 82746; 82805; 82962; 83540; 83550; 83605; 83615; 83735; 83880; 83935; 84075; 84100; 84300; 84443; 84478; 84484; 85014; 85018; 87070; 88108; 88312; 92610; 93005; 93306; 93970; 94002; 94003; 94640; 94660; 97162; 97167; 97530; 99285; C1893; C9113; J0696; J1200; J1650; J1940; J1953; J2060; J2543; J2704; J3370; J3430; J3480; J3490; J7030; J7040; J7042; J7050; J7060; J7070; J7620; P9041; A4315; G0480